=== PATIENT | female | born 1990 | race African-American/Black ===

== ENCOUNTER 2018-02-14 17:21 | Emergency (ER) | payer OTHER ==
[~2018-02-14] VITALS: Ht 165.1 cm; Wt 61.2 kg
[~2018-02-14 17:21] MED LIST: NITR100C62 PO
[2018-02-14 17:39] LABS: BILIRUBIN,URINE SMALL (NEG); CLARITY,URINE CLEAR; COLOR,URINE AMBER; NITRITE,URINE NEGATIVE (NEG); PH,URINE 6.5; PROTEIN,URINE NEGATIVE (NEG-TRACE)
[2018-02-14 17:50] LABS: BACTERIA,URINE FEW /HPF (0-FEW); RBC,URINE 0 /HPF (0-2); SQUAMOUS EPITHELIAL CELL,UR MOD /LPF; YEAST,URINE PRESENT /HPF
[2018-02-14] MEDS ORDERED: IV NORMAL SALINE 1000ML BAG 1,000 ML IV ONE (18:00)
[2018-02-14 18:22] LABS: BASO % 1 % (0-3); EOS # 0.1 x10^3/uL (0.0-0.7); EOS % 1 % (0-3); HEMATOCRIT 42.8 % (36.0-47.0); HEMOGLOBIN 14.5 g/dL (12.0-15.5); LYMPH # 2.7 x10^3/uL (1.0-4.8); LYMPH % 38 % (24-48); MEAN CORPUSCULAR HEMOGLOBIN 33 pg (25-35); MEAN CORPUSCULAR HGB CONC 34 g/dL (31-37); MEAN CORPUSCULAR VOLUME 96 fL (79-100); MONO # 0.4 x10^3/uL (0.0-1.1); MONO % 5 % (0-9); NEUT % 56 % (31-73); PLATELET COUNT 173 x10^3/uL (140-400); RED BLOOD COUNT 4.44 x10^6/uL (3.50-5.40); RED CELL DISTRIBUTION WIDTH 12.9 % (11.5-14.5); WHITE BLOOD COUNT 7.2 x10^3/uL (4.0-11.0)
[2018-02-14 18:25] LABS: CALCIUM 9.8 mg/dL (8.5-10.1); CREATININE 0.9 mg/dL (0.6-1.0); GFR 92.3; POTASSIUM 3.5 mmol/L (3.5-5.1)
--- NOTE | 2018-02-14 18:26 | PHYS DOC ---
Past Medical History Past Medical History: No Pertinent History Past Surgical History: No Surgical History Alcohol Use: None Drug Use: None Adult General Chief Complaint Chief Complaint: ABDOMINAL PAIN [facility] HPI Patient is a 27 year old female who presents with intermittent epigastric sharp pain. With last month. Patient states she has not her primary care assignment seen for. She states that nothing makes it better and nothing makes it worse. She is only been taking Tylenol every now and then for the pain. Patient states eating does not effect it or drinking. Patient also states that she does have some white vaginal discharge that doesn't have an odor color she has no vaginal itching. Patient has had a tubal ligation and last was her period was January 27. She denies diarrhea, fever, any abdominal pain at this time. Review of Systems Review of Systems Constitutional: Denies fever or chills [] Eyes: Denies change in visual acuity, redness, or eye pain [] HENT: Denies nasal congestion or sore throat [] Respiratory: Denies cough or shortness of breath [] Cardiovascular: No additional information not addressed in HPI [] GI: Intermittent epigastric abdominal pain, denies nausea, vomiting, bloody stools or diarrhea [] : White Vaginal discharge, Denies dysuria or hematuria [] Musculoskeletal: Denies back pain or joint pain [] Integument: Denies rash or skin lesions [] Neurologic: Denies headache, focal weakness or sensory changes [] All other systems were reviewed and found to be within normal limits, except as documented in this note. Current Medications Current Medications Current Medications Medications (Trade) Dose Ordered Sig/Katja Start Time Stop Time Status Last Admin Dose Admin Fluconazole (Diflucan) 150 mg 1X ONCE 02/14/18 19:15 02/14/18 19:16 DC Iohexol (Omnipaque 300 Mg/ml) 75 ml 1X ONCE 02/14/18 18:45 02/14/18 18:46 DC 02/14/18 18:53 75 ML Sodium Chloride 1,000 ml @ 1,000 mls/hr 1X ONCE 02/14/18 18:00 02/14/18 18:59 DC 02/14/18 18:00 1,000 MLS/HR Allergies Allergies Allergies Coded Allergies Type Severity Reaction Last Updated Verified No Known Drug Allergies 07/23/15 No Physical Exam Physical Exam Constitutional: Well developed, well nourished, no acute distress, non-toxic appearance. [] HENT: Normocephalic, atraumatic, bilateral external ears normal, oropharynx moist, no oral exudates, nose normal. [] Eyes: PERRLA, EOMI, conjunctiva normal, no discharge. [] Neck: Normal range of motion, no tenderness, supple, no stridor. [] Cardiovascular:Heart rate regular rhythm, no murmur [] Lungs & Thorax: Bilateral breath sounds clear to auscultation [] Abdomen: White vaginal discharge. Bowel sounds normal, soft, no tenderness, no masses, no pulsatile masses. [] Skin: Warm, dry, no erythema, no rash. [] Back: No tenderness, no CVA tenderness. [] Extremities: No tenderness, no cyanosis, no clubbing, ROM intact, no edema. [] Neurologic: Alert and oriented X 3, normal motor function, normal sensory function, no focal deficits noted. [] Psychologic: Affect normal, judgement normal, mood normal. [] Current Patient Data Vital Signs Vital Signs Date Time Temp Pulse Resp B/P (MAP) Pulse Ox O2 Delivery O2 Flow Rate FiO2 02/14/18 17:41 97.8 76 16 128/79 (95) 100 Room Air 97.8 Lab Values Laboratory Tests Test 02/14/18 17:21 02/14/18 17:32 02/14/18 18:04 Urine Collection Type Unknown Urine Color Sabra Urine Clarity Clear Urine pH 6.5 Urine Specific [place] >=1.030 Urine Protein Negative mg/dL (NEG-TRACE) Urine Glucose (UA) Negative mg/dL (NEG) Urine Ketones (Stick) Negative mg/dL (NEG) Urine Blood Negative (NEG) Urine Nitrite Negative (NEG) Urine Bilirubin Small (NEG) Urine Urobilinogen Dipstick 1.0 mg/dL (0.2 mg/dL) Urine Leukocyte Esterase Small (NEG) Urine RBC 0 /HPF (0-2) Urine WBC 11-20 /HPF (0-4) Urine Squamous Epithelial Cells Mod /LPF Urine Bacteria Few /HPF (0-FEW) Urine Mucus Marked /LPF Urine Yeast Present /HPF POC Urine HCG, Qualitative Hcg negative (Negative) White Blood Count 7.2 x10^3/uL (4.0-11.0) Red Blood Count 4.44 x10^6/uL (3.50-5.40) Hemoglobin 14.5 g/dL (12.0-15.5) Hematocrit 42.8 % (36.0-47.0) Mean Corpuscular Volume 96 fL (79-100) Mean Corpuscular Hemoglobin 33 pg (25-35) Mean Corpuscular Hemoglobin Concent 34 g/dL (31-37) Red Cell Distribution Width 12.9 % (11.5-14.5) Platelet Count 173 x10^3/uL (140-400) Neutrophils (%) (Auto) 56 % (31-73) Lymphocytes (%) (Auto) 38 % (24-48) Monocytes (%) (Auto) 5 % (0-9) Eosinophils (%) (Auto) 1 % (0-3) Basophils (%) (Auto) 1 % (0-3) Neutrophils # (Auto) 4.0 x10^3uL (1.8-7.7) Lymphocytes # (Auto) 2.7 x10^3/uL (1.0-4.8) Monocytes # (Auto) 0.4 x10^3/uL (0.0-1.1) Eosinophils # (Auto) 0.1 x10^3/uL (0.0-0.7) Basophils # (Auto) 0.0 x10^3/uL (0.0-0.2) Sodium Level 141 mmol/L (136-145) Potassium Level 3.5 mmol/L (3.5-5.1) Chloride Level 101 mmol/L (98-107) Carbon Dioxide Level 29 mmol/L (21-32) Anion Gap 11 (6-14) Blood Urea Nitrogen 13 mg/dL (7-20) Creatinine 0.9 mg/dL (0.6-1.0) Estimated GFR (Cockcroft-Gault) 92.3 BUN/Creatinine Ratio 14 (6-20) Glucose Level 75 mg/dL (70-99) Calcium Level 9.8 mg/dL (8.5-10.1) Total Bilirubin 0.5 mg/dL (0.2-1.0) Aspartate Amino Transferase (AST) 12 U/L (15-37) L Alanine Aminotransferase (ALT) 16 U/L (14-59) Alkaline Phosphatase 93 U/L (46-116) Total Protein 8.7 g/dL (6.4-8.2) H Albumin 4.7 g/dL (3.4-5.0) Albumin/Globulin Ratio 1.2 (1.0-1.7) Lipase 152 U/L (73-393) Laboratory Tests 02/14/18 18:04 Laboratory Tests 02/14/18 18:04 Microbiology 02/14/18 Wet Prep - Final, Complete EKG EKG [] Radiology/Procedures Radiology/Procedures CT ABD PELV Impressions: [facility] [address] [place] [address] IMAGING REPORT Signed PATIENT: EVI BERTRAND ACCOUNT: [id number] : 1990 LOCATION: ER AGE: 27 SEX: F EXAM STATUS: REG ER ORD. PHYSICIAN: FESTUS LIMA APRN REASON: CHRONIC ABDOMINAL PAIN PROCEDURE: CT ABD PELV W/ IV CONTRST ONLY CT scan of the abdomen and pelvis with contrast 02/14/2018 CLINICAL HISTORY: Upper abdominal pain for one month. TECHNIQUE: After the intravenous administration of 75 cc of Omnipaque 300 only, contiguous, 5 mm axial sections were obtained through abdomen and pelvis. One or more of the following individualized dose reduction techniques were utilized for this study: 1. Automated exposure control. 2. Adjustment of the mA and/or kV according to patient size. 3. Use of iterative reconstruction technique. FINDINGS: Images through the lung bases demonstrate minimal dependent subsegmental atelectasis bilaterally. The liver, spleen, pancreas, adrenal glands and kidneys are within normal limits. The abdominal aorta tapers normally. The liver is contracted. No free fluid or free air is seen within the abdomen. There is no evidence of bowel obstruction. Air and stool is seen throughout the colon. The bowel is difficult to evaluate without oral contrast material. Images through the pelvis demonstrate the urinary bladder distended with urine. No adnexal mass is seen. No free fluid is seen. Very mild S-shaped curvature of the thoracolumbar spine is seen. IMPRESSION: No acute abnormality is seen. Electronically signed by: Liam Ascencio MD (02/14/2018 7:15 PM) [facility] DICTATED and SIGNED BY: LIAM ASCENCIO MD DATE: 02/14/181909 Course & Med Decision Making Course & Med Decision Making Patient is a 27 year old female who presents with intermittent epigastric sharp pain. With last month. Patient states she has not her primary care assignment seen for. She states that nothing makes it better and nothing makes it worse. She is only been taking Tylenol every now and then for the pain. Patient states eating does not effect it or drinking. Patient also states that she does have some white vaginal discharge that doesn't have an odor color she has no vaginal itching. Patient has had a tubal ligation and last was her period was January 27. She denies diarrhea, fever, any abdominal pain at this time. Alert and oriented. Skin is pink warm and dry. Mucous members are moist. Ambulatory with steady gait. Patient has no pain at this time. Abdomen is soft and with no tenderness. Afebrile. Lungs are clear to auscultation all lobes. Heart rate regular without murmur. Patient states she vomited once yesterday but usually doesn't vomit. The vomit had no blood in it. She has not noticed blood in her stools. States she is not worried about sexual transmitted diseases. Wet mount is negative for any acute findings. Blood work is unremarkable. Urine does show some bacteria and yeast. I have order her a dose of Diflucan. CT shows no acute findings. I will give her referral to GI. Patient start taking [id number] Zantac to see if this helps her pain. Patient refuses STD prophylaxis at this time. Pelvic Exam: Aluminizer present Abdomen: Nontender External Genitalia: Normal Skin Speculum: Normal vaginal mucosa, white cervical discharge Bimanual: No adnexal masses or tenderness, No CMT Dragon Disclaimer Dragon Disclaimer This electronic medical record was generated, in whole or in part, using a voice recognition dictation system. Departure Departure Impression: Primary Impression: Abdominal pain Disposition: HOME, SELF-CARE Condition: STABLE Referrals: NO PCP (PCP) NICK WALLIS MD Patient Instructions: Abdominal Pain (Nonspecific) Additional Instructions: Follow-up with GI. Take medication as prescribed. Scripts Ranitidine Hcl (ZANTAC) 150 Mg Tablet 1 TAB PO BID, #60 TAB 2 Refills Prov: JAXON LIMANNA Alfonso CATHEAD OPERATOR 02/14/18 Problem Qualifiers Primary Impression: Abdominal pain Abdominal location: epigastric Qualified Codes: R10.13 - Epigastric pain FESTUS LIMA APRN Feb 14, 2018 18:26
[2018-02-14 18:31] LABS: ALBUMIN 4.7 g/dL (3.4-5.0); ALBUMIN/GLOBULIN RATIO 1.2 (1.0-1.7); TOTAL BILIRUBIN 0.5 mg/dL (0.2-1.0); TOTAL PROTEIN 8.7 g/dL (6.4-8.2)
[2018-02-14] MEDS ORDERED: IOHEXOL 300 MG/ML 100ML VIAL. IV ONE (18:45)
[2018-02-14] MEDS ORDERED: FLUCONAZOLE 100 MG TABLET. PO ONE (19:15)
--- NOTE | 2018-02-14 19:19 | RAD ---
CT scan of the abdomen and pelvis with contrast 02/14/2018 CLINICAL HISTORY: Upper abdominal pain for one month. TECHNIQUE: After the intravenous administration of 75 cc of Omnipaque 300 only, contiguous, 5 mm axial sections were obtained through abdomen and pelvis. One or more of the following individualized dose reduction techniques were utilized for this study: 1. Automated exposure control. 2. Adjustment of the mA and/or kV according to patient size. 3. Use of iterative reconstruction technique. FINDINGS: Images through the lung bases demonstrate minimal dependent subsegmental atelectasis bilaterally. The liver, spleen, pancreas, adrenal glands and kidneys are within normal limits. The abdominal aorta tapers normally. The liver is contracted. No free fluid or free air is seen within the abdomen. There is no evidence of bowel obstruction. Air and stool is seen throughout the colon. The bowel is difficult to evaluate without oral contrast material. Images through the pelvis demonstrate the urinary bladder distended with urine. No adnexal mass is seen. No free fluid is seen. Very mild S-shaped curvature of the thoracolumbar spine is seen. IMPRESSION: No acute abnormality is seen. Electronically signed by: Liam Ascenico MD (02/14/2018 7:15 PM) [facility]
[2018-02-14] MEDS ORDERED: RANI150T21 PO (19:40)
[2018-02-14 19:45] VITALS: BP 105/68
[2018-02-17 19:15] LABS: GC PROBE Negative (Negative)
== END 2018-02-14 20:02 | disposition home or self-care (01) ==
LOC: ER 17:21
DX: R10.13 Epigastric pain (principal); N89.8 Other specified noninflammatory disorders of vagina; Z98.51 Tubal ligation status
CPT/HCPCS: 36415; 74177; 80053; 81001; 81025; 83690; 85025; 87086; 87491; 87591; 99284; J7030; Q0111; Q9967

== ENCOUNTER 2018-03-19 13:03 | Emergency (ER) | payer OTHER ==
[~2018-03-19] VITALS: Ht 167.6 cm; Wt 59.0 kg
[~2018-03-19 13:03] MED LIST changes: +RANI150T21 PO
[2018-03-19 14:48] VITALS: BP 134/80
[2018-03-19] MEDS ORDERED: LIDO:MAALOX 1:1 20 ML SINGLE DOSE. SWSW ONE (15:15)
[2018-03-19 15:16] LABS: BILIRUBIN,URINE SMALL (NEG); CLARITY,URINE CLEAR; COLOR,URINE AMBER; NITRITE,URINE NEGATIVE (NEG); PROTEIN,URINE 30 mg/dL (NEG-TRACE)
[2018-03-19 15:26] LABS: SQUAMOUS EPITHELIAL CELL,UR MOD /LPF
[2018-03-19 15:27] LABS: BACTERIA,URINE FEW /HPF (0-FEW); RBC,URINE OCC /HPF (0-2); WBC,URINE 20-40 /HPF (0-4)
[2018-03-19 15:28] LABS: TRICHOMONAS,URINE PRESENT
[2018-03-19] MEDS ORDERED: cefTRIAXone IM 250 MG VIAL IM ONE (16:00)
[2018-03-19] MEDS ORDERED: AZITHROMYCIN 250 MG TABLET. PO ONE (16:00)
[2018-03-19] MEDS ORDERED: FAMO20TA5 PO (16:00)
[2018-03-19] MEDS ORDERED: metroNIDAZOLE 500 MG TABLET PO ONE (16:00)
--- NOTE | 2018-03-19 16:00 | PHYS DOC ---
Past Medical History Past Medical History: No Pertinent History Past Surgical History: No Surgical History Alcohol Use: None Drug Use: None Adult General Chief Complaint Chief Complaint: ABDOMINAL PAIN HPI HPI Patient is a 28 year old female who presents today complaining of mild intermittent sharp epigastric abdominal pain that has been going on for the last 2 months. Patient states her pain is usually worse in the morning when she wakes up. Patient denies anything specific relieving her pain. She states she has been seen in the ED before and was told she could have acid reflex. She states she was sent home with medications which she did not take. Patient denies any chance she is . Denies any nausea. Denies any diarrhea. She is also requesting a note for work Review of Systems Review of Systems Constitutional: Denies fever or chills [] Eyes: Denies change in visual acuity, redness, or eye pain [] HENT: Denies nasal congestion or sore throat [] Respiratory: Denies cough or shortness of breath [] Cardiovascular: No additional information not addressed in HPI [] GI: Reports epigastric abdominal pain, denies nausea, vomiting, bloody stools or diarrhea [] : Denies dysuria or hematuria [] Musculoskeletal: Denies back pain or joint pain [] Integument: Denies rash or skin lesions [] Neurologic: Denies headache, focal weakness or sensory changes [] All other systems were reviewed and found to be within normal limits, except as documented in this note. Current Medications Current Medications Current Medications Medications (Trade) Dose Ordered Sig/Katja Start Time Stop Time Status Last Admin Dose Admin Azithromycin (Zithromax) 1,000 mg 1X ONCE 03/19/18 16:00 03/19/18 16:01 Ceftriaxone Sodium (Rocephin Im) 250 mg 1X ONCE 03/19/18 16:00 03/19/18 16:01 Metronidazole (Flagyl) 2,000 mg 1X ONCE 03/19/18 16:00 03/19/18 16:01 Multi-Ingredient Mouthwash/Gargle (Gi Cocktail) 20 ml 1X ONCE 03/19/18 15:15 03/19/18 15:16 DC 03/19/18 15:20 20 ML Allergies Allergies Allergies Coded Allergies Type Severity Reaction Last Updated Verified No Known Drug Allergies 07/23/15 No Physical Exam Physical Exam Constitutional: Well developed, well nourished, no acute distress, non-toxic appearance. [] HENT: Normocephalic, atraumatic, bilateral external ears normal, oropharynx moist, no oral exudates, nose normal. [] Eyes: PERRLA, EOMI, conjunctiva normal, no discharge. [] Neck: Normal range of motion, no tenderness, supple, no stridor. [] Cardiovascular:Heart rate regular rhythm, no murmur [] Lungs & Thorax: Bilateral breath sounds clear to auscultation [] Abdomen: Bowel sounds normal, soft, no tenderness, no masses, no pulsatile masses. [] Skin: Warm, dry, no erythema, no rash. [] Back: No tenderness, no CVA tenderness. [] Extremities: No tenderness, no cyanosis, no clubbing, ROM intact, no edema. [] Neurologic: Alert and oriented X 3, normal motor function, normal sensory function, no focal deficits noted. [] Psychologic: Affect normal, judgement normal, mood normal. [] Current Patient Data Vital Signs Vital Signs Date Time Temp Pulse Resp B/P (MAP) Pulse Ox O2 Delivery O2 Flow Rate FiO2 03/19/18 14:48 97.5 67 20 134/80 (98) 100 Room Air 97.5 Lab Values Laboratory Tests Test 03/19/18 14:44 03/19/18 14:54 Urine Collection Type Unknown Urine Color Sabra Urine Clarity Clear Urine pH 6.0 Urine Specific [place] >=1.030 Urine Protein 30 mg/dL (NEG-TRACE) Urine Glucose (UA) Negative mg/dL (NEG) Urine Ketones (Stick) 15 mg/dL (NEG) Urine Blood Negative (NEG) Urine Nitrite Negative (NEG) Urine Bilirubin Small (NEG) Urine Urobilinogen Dipstick 1.0 mg/dL (0.2 mg/dL) Urine Leukocyte Esterase Small (NEG) Urine RBC Occ /HPF (0-2) Urine WBC 20-40 /HPF (0-4) Urine Squamous Epithelial Cells Mod /LPF Urine Bacteria Few /HPF (0-FEW) Urine Mucus Marked /LPF Urine Trichomonas Present POC Urine HCG, Qualitative Hcg negative (Negative) EKG EKG [] Radiology/Procedures Radiology/Procedures [] Course & Med Decision Making Course & Med Decision Making Pertinent Labs and Imaging studies reviewed. (See chart for details) This is a 28-year-old female patient presenting to the ED today with epigastric abdominal pain for 2 months. Patient has been seen in the ED a month ago and was fully worked up with nothing acute found. She was informed she has acid reflex. She has not been taking anything for it. She is also requesting a note for work. She is in a rash to be discharged. Negative urine hCG. Urine analysis is noted for Trichomonas. Patient was given Flagyl Rocephin and azithromycin. STD education provided. Discharged with prescription for famotidine. Provided GI doctor for follow-up as an outpatient. Dragon Disclaimer Dragon Disclaimer This electronic medical record was generated, in whole or in part, using a voice recognition dictation system. Departure Departure Impression: Primary Impression: Trichomonas vaginitis Additional Impression: Epigastric pain Disposition: 01 HOME, SELF-CARE Condition: STABLE Referrals: NO PCP (PCP) NICK WALLIS MD Follow up in the next 1 week. Patient Instructions: Abdominal Pain, Trichomoniasis-Brief Additional Instructions: You were evaluated in the emergency room for chronic epigastric abdominal pain. We put you on antiacids. Take them as prescribed. Please contact the provided charge entry and follow-up as an outpatient. You are also positive for Trichomonas, this is a sexually transmitted disease. Contact all your sex partners, let them know you were positive for Trichomonas and ask them to seek treatment too. Scripts Famotidine (FAMOTIDINE) 20 Mg Tablet 20 MG PO DAILY, #14 TAB Prov: SPENSER ALCARAZ APRN 03/19/18 Problem Qualifiers SPENSER ALCARAZ APRN Mar 19, 2018 16:00
== END 2018-03-19 16:25 | disposition home or self-care (01) ==
LOC: ER 13:03
DX: A59.01 Trichomonal vulvovaginitis (principal); K21.9 Gastro-esophageal reflux disease without esophagitis
CPT/HCPCS: 81001; 81025; 96372; 99284; J0696; Q0144

== ENCOUNTER 2018-09-09 07:05 | Emergency (ER) | payer MEDICAID, OTHER ==
[~2018-09-09] VITALS: Ht 167.6 cm; Wt 56.7 kg
[~2018-09-09 07:05] MED LIST changes: +FAMO20TA5 PO; +RANI-376 PO; -RANI150T21 PO
[2018-09-09 07:29] LABS: BILIRUBIN,URINE NEGATIVE (NEG); CLARITY,URINE CLEAR; COLOR,URINE YELLOW; NITRITE,URINE NEGATIVE (NEG); PH,URINE 6.5; PROTEIN,URINE NEGATIVE (NEG-TRACE); UROBILINOGEN,URINE 0.2 mg/dL (0.2 mg/dL)
[2018-09-09] MEDS ORDERED: IV NORMAL SALINE 1000ML BAG 1,000 ML IV ONE (07:30)
[2018-09-09] MEDS ORDERED: ONDANSETRON PF 4 MG/2 ML VIAL. IV ONE (07:30)
[2018-09-09 07:35] LABS: BASO % 1 % (0-3); EOS # 0.1 x10^3/uL (0.0-0.7); EOS % 2 % (0-3); HEMATOCRIT 39.8 % (36.0-47.0); HEMOGLOBIN 13.4 g/dL (12.0-15.5); LYMPH # 1.7 x10^3/uL (1.0-4.8); LYMPH % 23 % (24-48); MEAN CORPUSCULAR HEMOGLOBIN 33 pg (25-35); MEAN CORPUSCULAR HGB CONC 34 g/dL (31-37); MEAN CORPUSCULAR VOLUME 97 fL (79-100); MONO # 0.4 x10^3/uL (0.0-1.1); MONO % 5 % (0-9); NEUT % 70 % (31-73); PLATELET COUNT 182 x10^3/uL (140-400); RED BLOOD COUNT 4.09 x10^6/uL (3.50-5.40); RED CELL DISTRIBUTION WIDTH 12.9 % (11.5-14.5); WHITE BLOOD COUNT 7.1 x10^3/uL (4.0-11.0)
[2018-09-09 07:39] LABS: CALCIUM 9.1 mg/dL (8.5-10.1); CREATININE 0.9 mg/dL (0.6-1.0); GFR 91.6
[2018-09-09 07:45] LABS: ALBUMIN 4.3 g/dL (3.4-5.0); ALBUMIN/GLOBULIN RATIO 1.3 (1.0-1.7); TOTAL BILIRUBIN 0.4 mg/dL (0.2-1.0); TOTAL PROTEIN 7.5 g/dL (6.4-8.2)
[2018-09-09 07:57] LABS: BACTERIA,URINE 0 /HPF (0-FEW); RBC,URINE 0 /HPF (0-2); SQUAMOUS EPITHELIAL CELL,UR MANY /LPF; WBC,URINE 0 /HPF (0-4)
--- NOTE | 2018-09-09 08:06 | RAD ---
Indication:Right upper quadrant pain. TECHNIQUE: Grayscale, color Doppler and spectral waveform is of the abdomen obtained. COMPARISON:None FINDINGS: Visualized pancreas within normal limits. IVC is patent. Liver is top normal in size measuring 17 cm with normal echogenicity. No gallstones, pericholecystic fluid or gallbladder wall thickening. Main portal vein is patent with hepatopedal flow. CBD measures 2 mm in diameter and is within normal limits. Right kidney measures 10.3 cm in length without hydronephrosis. IMPRESSION: No cholelithiasis. Electronically signed by: Leighton Pepe DO (09/09/2018 8:03 AM) [facility]
[2018-09-09] MEDS ORDERED: RANI300T3 PO (08:13)
--- NOTE | 2018-09-09 08:13 | PHYS DOC ---
Past Medical History Past Medical History: No Pertinent History Past Surgical History: Alcohol Use: None Drug Use: None Adult General Chief Complaint Chief Complaint: ABDOMINAL PAIN HPI HPI 28-year-old female presents with several day history of waxing and waning epigastric/right upper quadrant pain. She states the pain is unpredictable. She states it doesn't necessarily get better or worse with eating or drinking. She denies any fever chills or sweats. She has not had any melena or hematemesis. She does describe the pain as burning and sharp at times. She states prior to just a few days ago she is not had this pain before. She states she has only had one abdominal surgery which was a in 2017. Patient denies any vaginal bleeding discharge or dyspareunia.] Review of Systems Review of Systems Constitutional: Denies fever or chills [] Eyes: Denies change in visual acuity, redness, or eye pain [] HENT: Denies nasal congestion or sore throat [] Respiratory: Denies cough or shortness of breath [] Cardiovascular: No additional information not addressed in HPI [] GI: Per history of present illness[] : Denies dysuria or hematuria [] Musculoskeletal: Denies back pain or joint pain [] Integument: Denies rash or skin lesions [] Neurologic: Denies headache, focal weakness or sensory changes [] Endocrine: Denies polyuria or polydipsia [] All other systems were reviewed and found to be within normal limits, except as documented in this note. Current Medications Current Medications Current Medications Medications (Trade) Dose Ordered Sig/Katja Start Time Stop Time Status Last Admin Dose Admin Ondansetron HCl (Zofran) 4 mg 1X ONCE 09/09/18 07:30 09/09/18 07:31 DC 09/09/18 07:35 4 MG Sodium Chloride 1,000 ml @ 1,000 mls/hr 1X ONCE 09/09/18 07:30 09/09/18 08:29 09/09/18 07:35 1,000 MLS/HR Allergies Allergies Allergies Coded Allergies Type Severity Reaction Last Updated Verified No Known Drug Allergies 07/23/15 No Physical Exam Physical Exam Constitutional: Well developed, well nourished, no acute distress, non-toxic appearance. [] HENT: Normocephalic, atraumatic, bilateral external ears normal, oropharynx moist, no oral exudates, nose normal. [] Eyes: PERRLA, EOMI, conjunctiva normal, no discharge. [] Neck: Normal range of motion, no tenderness, supple, no stridor. [] Cardiovascular:Heart rate regular rhythm, no murmur [] Lungs & Thorax: Bilateral breath sounds clear to auscultation [] Abdomen: Mild epigastric tenderness to palp negative Anne's[] Skin: Warm, dry, no erythema, no rash. [] Back: No tenderness, no CVA tenderness. [] Extremities: No tenderness, no cyanosis, no clubbing, ROM intact, no edema. [] Neurologic: Alert and oriented X 3, normal motor function, normal sensory function, no focal deficits noted. [] Psychologic: Anxious[] Current Patient Data Vital Signs Vital Signs Date Time Temp Pulse Resp B/P (MAP) Pulse Ox O2 Delivery O2 Flow Rate FiO2 09/09/18 07:07 97.9 78 20 126/75 (92) 95 Room Air 97.9 Lab Values Laboratory Tests Test 09/09/18 07:10 09/09/18 07:15 09/09/18 07:25 Urine Color Yellow Urine Clarity Clear Urine pH 6.5 Urine Specific Reader 1.025 Urine Protein Negative mg/dL (NEG-TRACE) Urine Glucose (UA) Negative mg/dL (NEG) Urine Ketones (Stick) Negative mg/dL (NEG) Urine Blood Negative (NEG) Urine Nitrite Negative (NEG) Urine Bilirubin Negative (NEG) Urine Urobilinogen Dipstick 0.2 mg/dL (0.2 mg/dL) Urine Leukocyte Esterase Negative (NEG) Urine RBC 0 /HPF (0-2) Urine WBC 0 /HPF (0-4) Urine Squamous Epithelial Cells Many /LPF Urine Bacteria 0 /HPF (0-FEW) POC Urine HCG, Qualitative Hcg negative (Negative) White Blood Count 7.1 x10^3/uL (4.0-11.0) Red Blood Count 4.09 x10^6/uL (3.50-5.40) Hemoglobin 13.4 g/dL (12.0-15.5) Hematocrit 39.8 % (36.0-47.0) Mean Corpuscular Volume 97 fL (79-100) Mean Corpuscular Hemoglobin 33 pg (25-35) Mean Corpuscular Hemoglobin Concent 34 g/dL (31-37) Red Cell Distribution Width 12.9 % (11.5-14.5) Platelet Count 182 x10^3/uL (140-400) Neutrophils (%) (Auto) 70 % (31-73) Lymphocytes (%) (Auto) 23 % (24-48) L Monocytes (%) (Auto) 5 % (0-9) Eosinophils (%) (Auto) 2 % (0-3) Basophils (%) (Auto) 1 % (0-3) Neutrophils # (Auto) 5.0 x10^3/uL (1.8-7.7) Lymphocytes # (Auto) 1.7 x10^3/uL (1.0-4.8) Monocytes # (Auto) 0.4 x10^3/uL (0.0-1.1) Eosinophils # (Auto) 0.1 x10^3/uL (0.0-0.7) Basophils # (Auto) 0.0 x10^3/uL (0.0-0.2) Platelet Estimate Pending Sodium Level 137 mmol/L (136-145) Potassium Level 4.0 mmol/L (3.5-5.1) Chloride Level 101 mmol/L (98-107) Carbon Dioxide Level 25 mmol/L (21-32) Anion Gap 11 (6-14) Blood Urea Nitrogen 13 mg/dL (7-20) Creatinine 0.9 mg/dL (0.6-1.0) Estimated GFR (Cockcroft-Gault) 91.6 BUN/Creatinine Ratio 14 (6-20) Glucose Level 96 mg/dL (70-99) Calcium Level 9.1 mg/dL (8.5-10.1) Total Bilirubin 0.4 mg/dL (0.2-1.0) Aspartate Amino Transferase (AST) 12 U/L (15-37) L Alanine Aminotransferase (ALT) 18 U/L (14-59) Alkaline Phosphatase 77 U/L (46-116) Total Protein 7.5 g/dL (6.4-8.2) Albumin 4.3 g/dL (3.4-5.0) Albumin/Globulin Ratio 1.3 (1.0-1.7) Lipase 145 U/L (73-393) Laboratory Tests 09/09/18 07:25 Laboratory Tests 09/09/18 07:25 EKG EKG [] Radiology/Procedures Radiology/Procedures [] Impressions: REASON: ruq pain PROCEDURE: ABDOMEN LTD Indication:Right upper quadrant pain. TECHNIQUE: Grayscale, color Doppler and spectral waveform is of the abdomen obtained. COMPARISON:None FINDINGS: Visualized pancreas within normal limits. IVC is patent. Liver is top normal in size measuring 17 cm with normal echogenicity. No gallstones, pericholecystic fluid or gallbladder wall thickening. Main portal vein is patent with hepatopedal flow. CBD measures 2 mm in diameter and is within normal limits. Right kidney measures 10.3 cm in length without hydronephrosis. IMPRESSION: No cholelithiasis. Course & Med Decision Making Course & Med Decision Making Pertinent Labs and Imaging studies reviewed. (See chart for details) [ED course: Evaluation reveals a 28-year-old female who does not appear particularly ill. She does complain of epigastric pain. Her physical exam was benign. Gallbladder ultrasound did not show any evidence of cholelithiasis. All of her laboratory studies including a urinalysis were negative. I reassured the patient that I did not believe anything serious was going on. I did give her a GI cocktail during her stay in the department which did help alleviate her symptoms. I'll provide her with an H2 celi to take at home.] Dragon Disclaimer Dragon Disclaimer This electronic medical record was generated, in whole or in part, using a voice recognition dictation system. Departure Departure Impression: Primary Impression: Epigastric pain Disposition: HOME, SELF-CARE Condition: STABLE Referrals: NO PCP (PCP) Patient Instructions: Abdominal Pain Additional Instructions: Return to the emergency department with any new or concerning symptoms Scripts Ranitidine Hcl (ZANTAC) 300 Mg Tablet 1 TAB PO QHS for reflux, #90 TAB 3 Refills Prov: ROBERTO TUCKER DO 09/09/18 ROBERTO TUCKER DO Sep 09, 2018 08:13
[2018-09-09 08:15] VITALS: BP 127/77
[2018-09-09] MEDS ORDERED: LIDO:MAALOX 1:1 20 ML SINGLE DOSE. SWSW ONE (08:15)
[2018-09-09 10:19] LABS: PLT ESTIMATE ADEQUATE (ADEQUATE)
== END 2018-09-09 08:22 | disposition home or self-care (01) ==
LOC: ER 07:05
DX: R10.13 Epigastric pain (principal); F41.9 Anxiety disorder, unspecified; R11.2 Nausea with vomiting, unspecified
CPT/HCPCS: 36415; 76705; 80053; 81001; 81025; 83690; 85025; 96361; 96374; 99285; J2405; J7030

== ENCOUNTER 2018-10-21 22:08 | Emergency (ER) | payer MEDICAID ==
[~2018-10-21] VITALS: Ht 167.6 cm; Wt 52.2 kg
[~2018-10-21 22:08] MED LIST changes: +RANI300T3 PO
[2018-10-21] MEDS ORDERED: fentaNYL PF VIAL 100 MCG/2 ML VIAL IV PRN (23:45)
[2018-10-22] MEDS ORDERED: ONDANSETRON PF 4 MG/2 ML VIAL. IV ONE
[2018-10-22] MEDS ORDERED: IV NORMAL SALINE 1000ML BAG 1,000 ML IV SCH
[2018-10-22 00:04] LABS: BASO % 1 % (0-3); EOS # 0.2 x10^3/uL (0.0-0.7); EOS % 2 % (0-3); HEMATOCRIT 38.5 % (36.0-47.0); HEMOGLOBIN 13.1 g/dL (12.0-15.5); LYMPH # 2.3 x10^3/uL (1.0-4.8); LYMPH % 32 % (24-48); MEAN CORPUSCULAR HEMOGLOBIN 34 pg (25-35); MEAN CORPUSCULAR HGB CONC 34 g/dL (31-37); MEAN CORPUSCULAR VOLUME 99 fL (79-100); MONO # 0.4 x10^3/uL (0.0-1.1); MONO % 6 % (0-9); NEUT # 4.4 x10^3/uL (1.8-7.7); NEUT % 60 % (31-73); PLATELET COUNT 167 x10^3/uL (140-400); RED CELL DISTRIBUTION WIDTH 12.8 % (11.5-14.5); WHITE BLOOD COUNT 7.3 x10^3/uL (4.0-11.0)
[2018-10-22 00:13] LABS: CALCIUM 8.7 mg/dL (8.5-10.1); CREATININE 0.7 mg/dL (0.6-1.0); GFR 122.4; POTASSIUM 3.7 mmol/L (3.5-5.1)
[2018-10-22 00:14] LABS: BILIRUBIN,URINE NEGATIVE (NEG); CLARITY,URINE CLEAR; COLOR,URINE YELLOW; NITRITE,URINE NEGATIVE (NEG); PROTEIN,URINE NEGATIVE (NEG-TRACE)
[2018-10-22 00:15] VITALS: BP 123/81
[2018-10-22 00:19] LABS: BACTERIA,URINE FEW /HPF (0-FEW); RBC,URINE 0 /HPF (0-2); SQUAMOUS EPITHELIAL CELL,UR MOD /LPF
[2018-10-22 00:22] LABS: ALBUMIN 4.1 g/dL (3.4-5.0); ALBUMIN/GLOBULIN RATIO 1.2 (1.0-1.7); TOTAL BILIRUBIN 0.4 mg/dL (0.2-1.0); TOTAL PROTEIN 7.4 g/dL (6.4-8.2)
[2018-10-22] MEDS ORDERED: IOHEXOL 300 MG/ML 100ML VIAL. IV ONE (01:00)
[2018-10-22] MEDS ORDERED: CONTRAST GIVEN. MC PRN (01:15)
--- NOTE | 2018-10-22 01:57 | PHYS DOC ---
Past Medical History Past Medical History: No Pertinent History Past Surgical History: Additional Information: 2 PPD Alcohol Use: None Drug Use: None Adult General Chief Complaint Chief Complaint: ABDOMINAL PAIN HPI HPI Patient is a 28-year-old female who presents with complaint of epigastric pain that has been intermittent over the last month. She states that pain is been present for the last couple of days and rates the pain at a 10 out of 10. She denies any radiation of the pain. She does admit to nausea and vomiting but denies any diarrhea. She denies any fever. Patient states that nothing improves the pain.[] Review of Systems Review of Systems Constitutional: Denies fever or chills [] Respiratory: Denies cough or shortness of breath [] Cardiovascular: No additional information not addressed in HPI [] GI: Complains of abdominal pain with nausea and vomiting. Denies diarrhea [] : Denies dysuria or hematuria [] Musculoskeletal: Denies back pain or joint pain [] All other systems were reviewed and found to be within normal limits, except as documented in this note. Current Medications Current Medications Current Medications Medications (Trade) Dose Ordered Sig/Katja Start Time Stop Time Status Last Admin Dose Admin Fentanyl Citrate (Fentanyl 2ml Vial) 25 mcg PRN Q15MIN PRN 10/21/18 23:45 10/22/18 02:53 DC 10/22/18 00:12 25 MCG Info (CONTRAST GIVEN -- Rx MONITORING) 1 each PRN DAILY PRN 10/22/18 01:15 10/22/18 02:53 DC Iohexol (Omnipaque 300 Mg/ml) 75 ml 1X ONCE 10/22/18 01:00 10/22/18 01:01 DC 10/22/18 00:59 75 ML Ondansetron HCl (Zofran) 4 mg 1X ONCE 10/22/18 00:00 10/22/18 00:01 DC 10/22/18 00:12 4 MG Sodium Chloride 1,000 ml @ 1,000 mls/hr Q1H 10/22/18 00:00 10/22/18 00:59 DC 10/22/18 00:14 1,000 MLS/HR Allergies Allergies Allergies Coded Allergies Type Severity Reaction Last Updated Verified No Known Drug Allergies 07/23/15 No Physical Exam Physical Exam Constitutional: Well developed, well nourished, no acute distress, non-toxic appearance. [] HENT: Normocephalic, atraumatic, bilateral external ears normal, oropharynx moist, no oral exudates, nose normal. [] Eyes: PERRLA, EOMI, conjunctiva normal, no discharge. [] Neck: Normal range of motion, no tenderness, supple, no stridor. [] Cardiovascular:Heart rate regular rhythm, no murmur [] Lungs & Thorax: Bilateral breath sounds clear to auscultation [] Abdomen: Bowel sounds normal, soft, with reported epigastric tenderness. [] Skin: Warm, dry, no erythema, no rash. [] Extremities: No tenderness, no cyanosis, no clubbing, ROM intact. [] Neurologic: Alert and oriented X 3, no focal deficits noted. [] Current Patient Data Vital Signs Vital Signs Date Time Temp Pulse Resp B/P (MAP) Pulse Ox O2 Delivery O2 Flow Rate FiO2 10/22/18 00:15 71 123/81 (95) 100 Room Air 10/22/18 00:12 20 10/21/18 23:11 98.1 98.1 Lab Values Laboratory Tests Test 10/21/18 23:10 10/21/18 23:16 10/21/18 23:30 Urine Collection Type Unknown Urine Color Yellow Urine Clarity Clear Urine pH 6.0 Urine Specific Echo 1.025 Urine Protein Negative mg/dL (NEG-TRACE) Urine Glucose (UA) Negative mg/dL (NEG) Urine Ketones (Stick) Negative mg/dL (NEG) Urine Blood Negative (NEG) Urine Nitrite Negative (NEG) Urine Bilirubin Negative (NEG) Urine Urobilinogen Dipstick 1.0 mg/dL (0.2 mg/dL) Urine Leukocyte Esterase Negative (NEG) Urine RBC 0 /HPF (0-2) Urine WBC 1-4 /HPF (0-4) Urine Squamous Epithelial Cells Mod /LPF Urine Bacteria Few /HPF (0-FEW) Urine Mucus Marked /LPF POC Urine HCG, Qualitative Hcg negative (Negative) White Blood Count 7.3 x10^3/uL (4.0-11.0) Red Blood Count 3.90 x10^6/uL (3.50-5.40) Hemoglobin 13.1 g/dL (12.0-15.5) Hematocrit 38.5 % (36.0-47.0) Mean Corpuscular Volume 99 fL (79-100) Mean Corpuscular Hemoglobin 34 pg (25-35) Mean Corpuscular Hemoglobin Concent 34 g/dL (31-37) Red Cell Distribution Width 12.8 % (11.5-14.5) Platelet Count 167 x10^3/uL (140-400) Neutrophils (%) (Auto) 60 % (31-73) Lymphocytes (%) (Auto) 32 % (24-48) Monocytes (%) (Auto) 6 % (0-9) Eosinophils (%) (Auto) 2 % (0-3) Basophils (%) (Auto) 1 % (0-3) Neutrophils # (Auto) 4.4 x10^3/uL (1.8-7.7) Lymphocytes # (Auto) 2.3 x10^3/uL (1.0-4.8) Monocytes # (Auto) 0.4 x10^3/uL (0.0-1.1) Eosinophils # (Auto) 0.2 x10^3/uL (0.0-0.7) Basophils # (Auto) 0.0 x10^3/uL (0.0-0.2) Sodium Level 142 mmol/L (136-145) Potassium Level 3.7 mmol/L (3.5-5.1) Chloride Level 106 mmol/L (98-107) Carbon Dioxide Level 28 mmol/L (21-32) Anion Gap 8 (6-14) Blood Urea Nitrogen 10 mg/dL (7-20) Creatinine 0.7 mg/dL (0.6-1.0) Estimated GFR (Cockcroft-Gault) 122.4 BUN/Creatinine Ratio 14 (6-20) Glucose Level 81 mg/dL (70-99) Calcium Level 8.7 mg/dL (8.5-10.1) Total Bilirubin 0.4 mg/dL (0.2-1.0) Aspartate Amino Transferase (AST) 9 U/L (15-37) L Alanine Aminotransferase (ALT) 17 U/L (14-59) Alkaline Phosphatase 78 U/L (46-116) Total Protein 7.4 g/dL (6.4-8.2) Albumin 4.1 g/dL (3.4-5.0) Albumin/Globulin Ratio 1.2 (1.0-1.7) Lipase 81 U/L (73-393) Laboratory Tests 10/21/18 23:30 Laboratory Tests 10/21/18 23:30 EKG EKG [] Radiology/Procedures Radiology/Procedures [] Impressions: CT abdomen pelvis with contrast: Reason for examination: Abdominal pain. Comparison is made to previous study dated 02/14/2018. Helical images were obtained through the abdomen and pelvis with intravenous administration of 75 cc Omnipaque 300. Reconstruction was performed in sagittal and coronal planes. Evaluation is limited by lack of intestinal contrast and limited intra-abdominal fat. Exposure: One or more of the following individualized dose reduction techniques were utilized for this examination: 1. Automated exposure control 2. Adjustment of the mA and/or kV according to patient size 3. Use of iterative reconstruction technique. The lung bases are clear. The heart size is normal with no pericardial effusion. The liver appears be mildly enlarged at 19 cm. No focal abnormality seen at the liver, gallbladder, spleen, adrenal glands or pancreas. The abdominal aorta and inferior vena cava show no acute abnormalities. The kidneys show no renal masses, renal calculi, hydronephrosis or evidence of obstructive uropathy. There is very little intra-abdominal fat and there is crowding of the intestinal structures. There is a large amount of intestinal air and fluid and no apparent obstruction is seen. The appendix is not definitely identified. No abnormality seen at the bladder or uterus. There does appear to be a 3 cm cystic-appearing lesion in the left adnexa which may ovarian cyst. No definite free fluid or free air is identified. No acute bony abnormalities are seen. IMPRESSION: Large amount of intestinal air but especially in the colon but no abnormal dilatation or evidence of obstruction. 3 cm cystic-appearing lesion in the left adnexa which may represent an ovarian cyst. Appendix is not identified due to lack of intra-abdominal fat and crowding of the abdominal structures. Electronically signed by: Marisela Suárez MD (10/22/2018 2:16 AM) [facility] DICTATED and SIGNED BY: MARISELA SUÁREZ MD DATE: 10/22/18 0216 Course & Med Decision Making Course & Med Decision Making Pertinent Labs and Imaging studies reviewed. (See chart for details) [] Dragon Disclaimer Dragon Disclaimer This electronic medical record was generated, in whole or in part, using a voice recognition dictation system. Departure Departure Impression: Primary Impression: Abdominal pain Disposition: 01 HOME, SELF-CARE Condition: STABLE Referrals: NO PCP (PCP) Patient Instructions: Abdominal Migraine Scripts Ondansetron Hcl (ZOFRAN) 4 Mg Tablet 4 MG PO PRN TID PRN for NAUSEA, #10 nausea/vomiting Prov: STEFANI FLANAGAN Jr. DO 10/22/18 Tramadol Hcl (TRAMADOL HCL) 50 Mg Tablet 50 MG PO Q6HRS PRN for PAIN, #10 TAB Prov: STEFANI FLANAGAN Jr. DO 10/22/18 Problem Qualifiers Primary Impression: Abdominal pain Abdominal location: epigastric Qualified Codes: R10.13 - Epigastric pain STEFANI FLANAGAN Jr. DO Oct 22, 2018 01:57
--- NOTE | 2018-10-22 02:19 | RAD ---
CT abdomen pelvis with contrast: Reason for examination: Abdominal pain. Comparison is made to previous study dated 02/14/2018. Helical images were obtained through the abdomen and pelvis with intravenous administration of 75 cc Omnipaque 300. Reconstruction was performed in sagittal and coronal planes. Evaluation is limited by lack of intestinal contrast and limited intra-abdominal fat. Exposure: One or more of the following individualized dose reduction techniques were utilized for this examination: 1. Automated exposure control 2. Adjustment of the mA and/or kV according to patient size 3. Use of iterative reconstruction technique. The lung bases are clear. The heart size is normal with no pericardial effusion. The liver appears be mildly enlarged at 19 cm. No focal abnormality seen at the liver, gallbladder, spleen, adrenal glands or pancreas. The abdominal aorta and inferior vena cava show no acute abnormalities. The kidneys show no renal masses, renal calculi, hydronephrosis or evidence of obstructive uropathy. There is very little intra-abdominal fat and there is crowding of the intestinal structures. There is a large amount of intestinal air and fluid and no apparent obstruction is seen. The appendix is not definitely identified. No abnormality seen at the bladder or uterus. There does appear to be a 3 cm cystic-appearing lesion in the left adnexa which may ovarian cyst. No definite free fluid or free air is identified. No acute bony abnormalities are seen. IMPRESSION: Large amount of intestinal air but especially in the colon but no abnormal dilatation or evidence of obstruction. 3 cm cystic-appearing lesion in the left adnexa which may represent an ovarian cyst. Appendix is not identified due to lack of intra-abdominal fat and crowding of the abdominal structures. Electronically signed by: Marisela Gaxiola MD (10/22/2018 2:16 AM) [facility]
[2018-10-22] MEDS ORDERED: TRAM50TA PO (02:30)
[2018-10-22] MEDS ORDERED: ONDA4TAB7 PO (02:30)
== END 2018-10-22 02:53 | disposition home or self-care (01) ==
LOC: ER 22:08
DX: R10.13 Epigastric pain (principal); R11.2 Nausea with vomiting, unspecified; F17.200 Nicotine dependence, unspecified, uncomplicated; Z98.890 Other specified postprocedural states
CPT/HCPCS: 36415; 74177; 80053; 81001; 81025; 83690; 85025; 96361; 96374; 96375; 99285; J2405; J3010; J7030; Q9967

== ENCOUNTER 2018-10-24 14:06 | Emergency (ER) | payer MEDICAID ==
[~2018-10-24] VITALS: Ht 167.6 cm; Wt 52.2 kg
[~2018-10-24 14:06] MED LIST changes: +ONDA4TAB7 PO; +TRAM50TA PO
--- NOTE | 2018-10-24 15:16 | PHYS DOC ---
Past Medical History Past Medical History: No Pertinent History Past Surgical History: Alcohol Use: None Drug Use: None Adult General Chief Complaint Chief Complaint: ABDOMINAL PAIN HPI HPI Patient is a 28 year old female who presents with [sharp epigastric pain. Patient reports she had been seen here 2 days ago, had labs and imaging, sent home wt rx for zofran and tramadol. Reports she has been taking it, but it is not helping her pain. States she has felt like vomiting several times today. States she has not been able to follow up with GI as it has been a holiday we ekend. ] Review of Systems Review of Systems Constitutional: Denies fever or chills [] Respiratory: Denies cough or shortness of breath [] Cardiovascular: No additional information not addressed in HPI [] GI: Reports sharp epigastric pain. States she has been spitting up some mucus, which she was referring to as emesis and denies any food particles coming up on the mucus. Denies any nausea at this time, bloody stools or diarrhea [] : Denies dysuria or hematuria [] Musculoskeletal: Denies back pain or joint pain [] Integument: Denies rash or skin lesions [] Neurologic: Denies headache, focal weakness or sensory changes [] Endocrine: Denies polyuria or polydipsia [] All other systems were reviewed and found to be within normal limits, except as documented in this note. Current Medications Current Medications Current Medications Medications (Trade) Dose Ordered Sig/Katja Start Time Stop Time Status Last Admin Dose Admin Sucralfate (Carafate) 1 gm 1X ONCE 10/24/18 15:30 10/24/18 15:31 DC 10/24/18 15:39 1 GM Allergies Allergies Allergies Coded Allergies Type Severity Reaction Last Updated Verified No Known Drug Allergies 07/23/15 No Physical Exam Physical Exam Constitutional: Well developed, well nourished, no acute distress, non-toxic appearance. [] HENT: Normocephalic, atraumatic, bilateral external ears normal, oropharynx moist, no oral exudates, nose normal. [] Eyes: PERRLA, EOMI, conjunctiva normal, no discharge. [] Neck: Normal range of motion, no tenderness, supple, no stridor. [] Cardiovascular:Heart rate regular rhythm, no murmur [] Lungs & Thorax: Bilateral breath faint wheezing noted[] Abdomen: Bowel sounds normal, soft, no tenderness, no masses, no pulsatile masses. [] Skin: Warm, dry, no erythema, no rash. [] Back: No tenderness, no CVA tenderness. [] Extremities: No tenderness, no cyanosis, no clubbing, ROM intact, no edema. [] Neurologic: Alert and oriented X 3, normal motor function, normal sensory function, no focal deficits noted. [] Psychologic: Affect normal, judgement normal, mood normal. [] Current Patient Data Vital Signs Vital Signs Date Time Temp Pulse Resp B/P (MAP) Pulse Ox O2 Delivery O2 Flow Rate FiO2 10/24/18 14:24 98.1 69 16 148/88 (108) 100 Room Air 98.1 Lab Values Laboratory Tests Test 10/24/18 14:16 POC Urine HCG, Qualitative Hcg negative (Negative) EKG EKG [] Radiology/Procedures Radiology/Procedures [] Course & Med Decision Making Course & Med Decision Making Pertinent Labs and Imaging studies reviewed. (See chart for details) [Reviewed lab and imaging results from two days prior, patient reports she does really want any additional testing changes once a medication that will work for her discomfort. She wants to follow-up with a information broker. she wants to just does not have the chance because of the holiday.] Carlaon Disclaimer Trudy Disclaimer This electronic medical record was generated, in whole or in part, using a voice recognition dictation system. Departure Departure Impression: Primary Impression: Epigastric pain Disposition: HOME, SELF-CARE Condition: STABLE Referrals: NO PCP (PCP) Patient Instructions: Gastritis, Adult Additional Instructions: Has been discussed, and she'll follow up with information broker. Take medications as prescribed. Try to watch your diet. As we discussed, try to stop smoking to help improve your lungs.. Scripts Omeprazole (OMEPRAZOLE) 20 Mg Tablet. 20 MG PO DAILY, #20 TAB Prov: ROBINSON PATEL APRN 10/24/18 Sucralfate (CARAFATE) 1 Gm Tablet 1 GM PO BIDBFRMEAL PRN PRN for PAIN, #20 TAB Prov: ROBINSON PATEL APRN 10/24/18 ROBINSON PATEL APRN Oct 24, 2018 15:16
[2018-10-24] MEDS ORDERED: SUCRALFATE 1 GM TABLET. PO ONE (15:30)
[2018-10-24 15:48] VITALS: BP 113/68
[2018-10-24] MEDS ORDERED: SUCR1TAB35 PO (15:52)
[2018-10-24] MEDS ORDERED: OMEP20TA8 PO (15:52)
== END 2018-10-24 16:09 | disposition home or self-care (01) ==
LOC: ER 14:06
DX: R10.13 Epigastric pain (principal)
CPT/HCPCS: 81025; 99283

== ENCOUNTER 2019-02-14 09:32 | Emergency (ER) | payer MEDICAID ==
[~2019-02-14] VITALS: Ht 167.6 cm; Wt 54.4 kg
[~2019-02-14 09:32] MED LIST changes: +OMEP20TA8 PO; +SUCR1TAB35 PO
[2019-02-14 09:47] VITALS: BP 105/69
--- NOTE | 2019-02-14 10:11 | PHYS DOC ---
Past Medical History Past Medical History: GERD, STD Past Surgical History: Alcohol Use: None Drug Use: None Adult General Chief Complaint Chief Complaint: ABDOMINAL PAIN HPI HPI Patient is a 28 year old female with history of acid reflux who presents to the ED today complaining of epigastric abdominal pain that has been going on for months, patient states symptoms began around 2018. Patient states she's been seen in the ED multiple times and has had many tests including a CAT scan of the abdomen and pelvic done a couple months ago which was negative. She states she is supposed to follow-up with a GI doctor but has not had a chance to see one. Patient denies any pain right now. She states whenever the pain occurs it feels like a note in the epigastric region. Review of Systems Review of Systems Constitutional: Denies fever or chills [] Eyes: Denies change in visual acuity, redness, or eye pain [] HENT: Denies nasal congestion or sore throat [] Respiratory: Denies cough or shortness of breath [] Cardiovascular: No additional information not addressed in HPI [] GI: Reports epigastric pain, denies nausea, vomiting, bloody stools or diarrhea [] : Denies dysuria or hematuria [] Musculoskeletal: Denies back pain or joint pain [] Integument: Denies rash or skin lesions [] Neurologic: Denies headache, focal weakness or sensory changes [] All other systems were reviewed and found to be within normal limits, except as documented in this note. Current Medications Current Medications Current Medications Medications (Trade) Dose Ordered Sig/Katja Start Time Stop Time Status Last Admin Dose Admin Multi-Ingredient Mouthwash/Gargle (Gi Cocktail) 20 ml 1X ONCE 02/14/19 10:15 02/14/19 10:16 DC 02/14/19 10:14 20 ML Allergies Allergies Allergies Coded Allergies Type Severity Reaction Last Updated Verified No Known Drug Allergies 07/23/15 No Physical Exam Physical Exam Constitutional: Well developed, well nourished, no acute distress, non-toxic appearance. [] HENT: Normocephalic, atraumatic, bilateral external ears normal, oropharynx moist, no oral exudates, nose normal. [] Eyes: PERRLA, EOMI, conjunctiva normal, no discharge. [] Neck: Normal range of motion, no tenderness, supple, no stridor. [] Cardiovascular:Heart rate regular rhythm, no murmur [] Lungs & Thorax: Bilateral breath sounds clear to auscultation [] Abdomen: Bowel sounds normal, soft, no tenderness, no masses, no pulsatile masses. [] Skin: Warm, dry, no erythema, no rash. [] Back: No tenderness, no CVA tenderness. [] Extremities: No tenderness, no cyanosis, no clubbing, ROM intact, no edema. [] Neurologic: Alert and oriented X 3, normal motor function, normal sensory function, no focal deficits noted. [] Psychologic: Affect normal, judgement normal, mood normal. [] Current Patient Data Vital Signs Vital Signs Date Time Temp Pulse Resp B/P (MAP) Pulse Ox O2 Delivery O2 Flow Rate FiO2 02/14/19 09:47 98.8 93 16 105/69 (81) 100 Room Air 98.8 Lab Values Laboratory Tests Test 02/14/19 09:52 POC Urine HCG, Qualitative Hcg negative (Negative) EKG EKG [] Radiology/Procedures Radiology/Procedures [] Course & Med Decision Making Course & Med Decision Making Pertinent Labs and Imaging studies reviewed. (See chart for details) This is a 28-year-old female patient presenting to the ED today complaining of epigastric abdominal pain that is chronic in nature, symptoms have been going on since 2018. Patient has been seen in the ED multiple times and has had multiple tests and blood work which were negative. She has been referred to GI. She has not followed up. I gave a referral today, there is nothing unusual about her pain. She was discharged to home. Dragon Disclaimer Dragon Disclaimer This electronic medical record was generated, in whole or in part, using a voice recognition dictation system. Departure Departure Impression: Primary Impression: Chronic epigastric pain Disposition: HOME, SELF-CARE Condition: STABLE Referrals: NO PCP (PCP) NICK WALLIS MD follow up in 1-2 weeks Patient Instructions: Diet for Gastroesophageal Reflux Disease, Adult Additional Instructions: You were evaluated in the emergency room for chronic epigastric abdominal pain. Please follow-up with your GI specialist or the one provided on the discharge paperwork as soon as possible. Take the prescribed medication as ordered. Scripts Omeprazole (OMEPRAZOLE) 20 Mg Tablet.dr 1 TAB PO DAILY, #20 TAB 0 Refills Prov: SPENSER ALCARAZ APRN 02/14/19 SPENSER ALCARAZ APRN Feb 14, 2019 10:11
[2019-02-14] MEDS: LIDO:MAALOX 1:1 20 ML SINGLE DOSE. SWSW ONE (10:14)
[2019-02-14] MEDS ORDERED: OMEP20TA8 PO (10:18)
== END 2019-02-14 10:23 | disposition home or self-care (01) ==
LOC: ER 09:32
DX: G89.29 Other chronic pain (principal); R10.13 Epigastric pain; K21.9 Gastro-esophageal reflux disease without esophagitis
CPT/HCPCS: 81025; 99282

== ENCOUNTER 2019-10-21 06:59 | Emergency (ER) | payer MEDICAID ==
[~2019-10-21] VITALS: Ht 167.6 cm; Wt 70.0 kg
[2019-10-21] MEDS ORDERED: IV NORMAL SALINE 1000ML BAG 1,000 ML IV ONE (07:19)
--- NOTE | 2019-10-21 07:22 | PHYS DOC ---
Past Medical History Past Medical History: GERD, STD Past Surgical History: Smoking Status: Current Every Day Smoker Alcohol Use: None Drug Use: None General Adult EDM: Chief Complaint: ABDOMINAL PAIN HPI: HPI: 29-year-old female presents emergency department today with epigastric abdominal pain for the past 3 days. It is associated with nausea and vomiting. The pain is a sharp shooting that is nonradiating without alleviating or exacerbating factors. It does not have any specific timing. Her vomitus is stomach contents without blood. She denies any blood in her stools. She denies fevers chills or rash. Review of systems negative for chest pain shortness of breath headache nuchal rigidity. All other review of systems negative. ED course: 29-year-old female with nausea vomiting and abdominal pain in the epigastrium. Vital signs show hypertension. Afebrile with a normal pulse. Patient was given IV fluids Pepcid and Zofran and is feeling much better after IV administrations. CT abdomen pelvis is unremarkable. Chemistry panel does show a low potassium. EKG obtained and reviewed by myself shows sinus rhythm with a regular rate. ST segments congruent. Not suggestive of ACS. QTC within normal limits. QRS within normal limits. Patient was given IV potassium here in the emergency room. We will have the patient take oral intake and as long as she is able to take oral intake without vomiting will discharge her home with oral potassium and Zofran along with a few medications for pain and an antacid. Patient has squamous cells with negative nitrites with trace leukoesterase and a few bacteria likely contaminated. Will wait for urine culture. Heart Score: Risk Factors: Risk Factors: DM, Current or recent (<one month) smoker, HTN, HLP, family history of CAD, obesity. Risk Scores: Score 0 - 3: 2.5% MACE over next 6 weeks - Discharge Home Score 4 - 6: 20.3% MACE over next 6 weeks - Admit for Clinical Observation Score 7 - 10: 72.7% MACE over next 6 weeks - Early Invasive Strategies Allergies: Allergies: Allergies Coded Allergies Type Severity Reaction Last Updated Verified No Known Drug Allergies 07/23/15 No Physical Exam: PE: Constitutional: Well developed, well nourished, no acute distress, non-toxic appearance. [] HENT: Normocephalic, atraumatic, bilateral external ears normal, oropharynx moist, no oral exudates, nose normal. [] Eyes: PERRLA, EOMI, conjunctiva normal, no discharge. [] Neck: Normal range of motion, no tenderness, supple, no stridor. [] Cardiovascular:Heart rate regular rhythm, no murmur [] Lungs & Thorax: Bilateral breath sounds clear to auscultation [] Abdomen: Bowel sounds normal, soft, no tenderness, no masses, no pulsatile masses. [] Skin: Warm, dry, no erythema, no rash. [] Back: No tenderness, no CVA tenderness. [] Extremities: No tenderness, no cyanosis, no clubbing, ROM intact, no edema. [] Neurologic: Alert and oriented X 3, normal motor function, normal sensory function, no focal deficits noted. [] Psychologic: Affect normal, judgement normal, mood normal. [] EKG: EKG: [] Radiology/Procedures: Radiology/Procedures: [] Course & Med Decision Making: Course & Med Decision Making Pertinent Labs and Imaging studies reviewed. (See chart for details) [] Dragon Disclaimer: Dragon Disclaimer: This electronic medical record was generated, in whole or in part, using a voice recognition dictation system. Departure Departure Impression: Primary Impression: Abdominal pain Additional Impression: Nausea & vomiting Disposition: 01 HOME, SELF-CARE Condition: STABLE Referrals: NO PCP (PCP) ALVARO SHAH MD tomorrow for reexamination Patient Instructions: Abdominal Pain (Nonspecific), Nausea and Vomiting Additional Instructions: Follow-up with your primary physician tomorrow for repeat abdominal exam. Return to the emergency department if you have any rash fever worsening abdominal pain intractable vomiting or any new or concerning findings. Scripts Potassium Chloride (POTASSIUM CHLORIDE ) 20 Meq Tablet.er 20 MEQ PO DAILY for SUPPLEMENT for 7 Days, #5 TAB.SR Prov: JOSE KEEN MD 10/21/19 Ondansetron Hcl (ZOFRAN) 4 Mg Tablet 1 TAB PO Q8HRS, #6 TAB Prov: JOSE KEEN MD 10/21/19 Justicifation of Admission Dx: Justifications for Admission: Justification of Admission Dx: N/A JOSE KEEN MD Oct 21, 2019 07:22
[2019-10-21] MEDS ORDERED: ONDANSETRON PF 4 MG/2 ML VIAL. IV ONE (07:30)
[2019-10-21] MEDS ORDERED: PANTOPRAZOLE IV PUSH 40 MG VIAL. IVP ONE (07:45)
[2019-10-21 07:56] LABS: BASO # 0.1 x10^3/uL (0.0-0.2); BASO % 1 % (0-3); EOS # 0.1 x10^3/uL (0.0-0.7); EOS % 1 % (0-3); HEMATOCRIT 45.1 % (36.0-47.0); HEMOGLOBIN 15.5 g/dL (12.0-15.5); LYMPH # 1.9 x10^3/uL (1.0-4.8); LYMPH % 19 % (24-48); MEAN CORPUSCULAR HEMOGLOBIN 34 pg (25-35); MEAN CORPUSCULAR HGB CONC 35 g/dL (31-37); MEAN CORPUSCULAR VOLUME 98 fL (79-100); MONO # 0.6 x10^3/uL (0.0-1.1); MONO % 6 % (0-9); NEUT # 7.7 x10^3/uL (1.8-7.7); NEUT % 74 % (31-73); PLATELET COUNT 233 x10^3/uL (140-400); RED BLOOD COUNT 4.58 x10^6/uL (3.50-5.40); WHITE BLOOD COUNT 10.4 x10^3/uL (4.0-11.0)
[2019-10-21 07:59] LABS: BILIRUBIN,URINE SMALL (NEG); CLARITY,URINE CLEAR; COLOR,URINE AMBER; NITRITE,URINE NEGATIVE (NEG); PROTEIN,URINE 30 mg/dL (NEG-TRACE)
[2019-10-21 08:08] LABS: ALBUMIN 4.4 g/dL (3.4-5.0); ALBUMIN/GLOBULIN RATIO 1.2 (1.0-1.7); CALCIUM 9.3 mg/dL (8.5-10.1); CREATININE 0.9 mg/dL (0.6-1.0); GFR 90.9; TOTAL PROTEIN 8.2 g/dL (6.4-8.2)
[2019-10-21 08:08] LABS: BACTERIA,URINE FEW /HPF (0-FEW); RBC,URINE OCC /HPF (0-2); SQUAMOUS EPITHELIAL CELL,UR FEW /LPF
[2019-10-21 08:09] LABS: PREG TEST PT QUAL NEGATIVE (NEG)
[2019-10-21] MEDS ORDERED: IOHEXOL 300 MG/ML 100ML VIAL. IV ONE (08:15)
[2019-10-21 08:16] LABS: POTASSIUM 2.9 mmol/L (3.5-5.1)
[2019-10-21] MEDS ORDERED: CONTRAST GIVEN. MC PRN (08:30)
[2019-10-21] MEDS ORDERED: POTASSIUM CHLORIDE 20MEQ 100 ML IV ONE (08:30)
--- NOTE | 2019-10-21 08:55 | EKG ---
[facility] [address] [place] [address] Test Date: 2019-10-21 Test Time: 08:41:54 Pat Name: EVI BERTRAND Department: Room: Gender: F Medical Reimbursement Manager: : 1990 Requested By: JOSE KEEN Order Number: [id number] Reading MD: Measurements Intervals [place] Rate: 58 P: 34 IA: 130 QRS: 59 QRSD: 88 T: 49 QT: 406 QTc: 402 Interpretive Statements SINUS RHYTHM OTHERWISE NORMAL ECG RI6.02 No previous ECG available for comparison
--- NOTE | 2019-10-21 09:20 | RAD ---
CT scan of the abdomen and pelvis with contrast 10/21/2019 CLINICAL HISTORY: Abdominal pain and vomiting. TECHNIQUE: After the intravenous administration of 75 cc of Omnipaque 300 only, contiguous, 5 mm axial sections were obtained through the abdomen and pelvis. One or more of the following individualized dose reduction techniques were utilized for this study: 1. Automated exposure control. 2. Adjustment of the mA and/or kV according to patient size. 3. Use of iterative reconstruction technique. FINDINGS: Comparison study is dated 10/22/2018. The absence of oral contrast material limits the study for the detection of bowel pathology. The liver, spleen, pancreas, adrenal glands and kidneys are within normal limits. The abdominal aorta tapers normally. The gallbladder is contracted. No free fluid or free air is seen within the abdomen. There is no evidence of bowel obstruction. The appendix is not visualized. No inflammatory changes are seen surrounding the cecum. No abnormal fluid collection is noted. Images through the pelvis demonstrate the urinary bladder to be contracted. A 2.5 cm rounded low-attenuation lesion is seen in the left adnexa. This likely represents a left ovarian cyst. No free fluid is noted. Very mild S-shaped curvature of the thoracolumbar spine is seen. IMPRESSION: 2.5 cm probable left ovarian cyst. Electronically signed by: Liam Ascencio MD (10/21/2019 9:17 AM) [id number]
[2019-10-21] MEDS ORDERED: ONDA4TAB7 PO (09:36)
[2019-10-21] MEDS ORDERED: POTA20TA4 PO (09:36)
[2019-10-21] MEDS ORDERED: IV NORMAL SALINE 500ML BAG 500 ML IV ONE (10:00)
[2019-10-21 10:57] VITALS: BP 123/73
[2019-10-22] MEDS ORDERED: METO10TA81 PO (05:31)
== END 2019-10-21 10:55 | disposition home or self-care (01) ==
LOC: ER 06:59
DX: R10.13 Epigastric pain (principal); R11.2 Nausea with vomiting, unspecified; K21.9 Gastro-esophageal reflux disease without esophagitis; F17.200 Nicotine dependence, unspecified, uncomplicated; Z98.890 Other specified postprocedural states
CPT/HCPCS: 36415; 74177; 80053; 81001; 81025; 83690; 83735; 84703; 85025; 87086; 93005; 96361; 96365; 96366; 96375; 99285; C9113; J2405; J3480; J7030; J7040; Q9967

== ENCOUNTER 2019-10-22 03:08 | Emergency (ER) | payer MEDICAID ==
[~2019-10-22] VITALS: Ht 167.6 cm; Wt 56.0 kg
[~2019-10-22 03:08] MED LIST changes: +POTA20TA4 PO
[2019-10-22] MEDS ORDERED: METOCLOPRAMIDE 10 MG TABLET. PO ONE (03:30)
[2019-10-22] MEDS ORDERED: IV RINGERS,LACTATED 1000ML 1,000 ML IV ONE ×2 (03:30→04:30)
[2019-10-22] MEDS ORDERED: OLANZapine IM 10 MG VIAL. IM ONE (04:30)
[2019-10-22 04:43] LABS: BASO % 0 % (0-3); BILIRUBIN,URINE SMALL (NEG); CLARITY,URINE CLEAR; COLOR,URINE AMBER; EOS # 0.1 x10^3/uL (0.0-0.7); EOS % 1 % (0-3); HEMATOCRIT 40.3 % (36.0-47.0); HEMOGLOBIN 13.8 g/dL (12.0-15.5); LYMPH # 1.7 x10^3/uL (1.0-4.8); LYMPH % 19 % (24-48); MEAN CORPUSCULAR HEMOGLOBIN 34 pg (25-35); MEAN CORPUSCULAR HGB CONC 34 g/dL (31-37); MEAN CORPUSCULAR VOLUME 98 fL (79-100); MONO # 0.5 x10^3/uL (0.0-1.1); MONO % 6 % (0-9); NEUT # 6.9 x10^3/uL (1.8-7.7); NEUT % 75 % (31-73); NITRITE,URINE NEGATIVE (NEG); PLATELET COUNT 213 x10^3/uL (140-400); PROTEIN,URINE NEGATIVE (NEG-TRACE); RED BLOOD COUNT 4.12 x10^6/uL (3.50-5.40); RED CELL DISTRIBUTION WIDTH 12.8 % (11.5-14.5); WHITE BLOOD COUNT 9.3 x10^3/uL (4.0-11.0)
[2019-10-22 05:03] LABS: CALCIUM 8.7 mg/dL (8.5-10.1); CREATININE 0.9 mg/dL (0.6-1.0); GFR 90.9; POTASSIUM 3.1 mmol/L (3.5-5.1)
[2019-10-22 05:08] LABS: BACTERIA,URINE MODERATE /HPF (0-FEW); HYALINE CASTS, URINE FEW /HPF; SQUAMOUS EPITHELIAL CELL,UR MOD /LPF; WBC,URINE >40 /HPF (0-4)
[2019-10-22 05:09] LABS: ALBUMIN 3.7 g/dL (3.4-5.0); ALBUMIN/GLOBULIN RATIO 1.1 (1.0-1.7); TOTAL BILIRUBIN 0.5 mg/dL (0.2-1.0)
[2019-10-22] MEDS ORDERED: METO10TA81 PO (05:31)
[2019-10-22 05:54] VITALS: BP 125/72
--- NOTE | 2019-11-07 18:13 | PHYS DOC ---
Past Medical History Past Medical History: No Pertinent History Past Surgical History: Smoking Status: Current Every Day Smoker Alcohol Use: None Drug Use: None General Adult EDM: Chief Complaint: ABDOMINAL PAIN HPI: HPI: the history was obtained from the patient. Patient is a 29-year-old female w ith PMH daily marijuana use who presents with a chief complaint of abdominal pain and vomiting. Patient states she has had abdominal pain over the past several days. States it started gradually. States it is diffuse in nature. She states it is nonradiating. States pain is aching. States nothing seems to exacerbate or alleviate the pain. She does note that she works marijuana daily but is never experienced these symptoms before. Denies any urinary symptoms. Denies any vaginal bleeding or discharge. Unsure of last menstrual period. Denies objective fevers. No other complaints. Review of Systems: Review of Systems: Constitutional: Denies fever or chills. [] Eyes: Denies change in visual acuity. [] HENT: Denies nasal congestion or sore throat. [] Respiratory: Denies cough or shortness of breath. [] Cardiovascular: Denies chest pain or edema. [] GI: Positive for abdominal pain and vomiting : Denies dysuria. [] Musculoskeletal: Denies back pain or joint pain. [] Integument: Denies rash. [] Neurologic: Denies headache, focal weakness or sensory changes. [] Endocrine: Denies polyuria or polydipsia. [] Lymphatic: Denies swollen glands. [] Psychiatric: Denies depression or anxiety. [] Heart Score: Risk Factors: Risk Factors: DM, Current or recent (<one month) smoker, HTN, HLP, family history of CAD, obesity. Risk Scores: Score 0 - 3: 2.5% MACE over next 6 weeks - Discharge Home Score 4 - 6: 20.3% MACE over next 6 weeks - Admit for Clinical Observation Score 7 - 10: 72.7% MACE over next 6 weeks - Early Invasive Strategies Current Medications: Current Medications Medications (Trade) Dose Ordered Sig/Katja Start Time Stop Time Status Last Admin Dose Admin Metoclopramide HCl (Reglan) 10 mg 1X ONCE 10/22/19 03:30 10/22/19 03:31 DC 10/22/19 04:51 10 MG Olanzapine (ZyPREXA IM) 10 mg 1X ONCE 10/22/19 04:30 10/22/19 04:31 DC 10/22/19 04:51 10 MG Ringer's Solution 1,000 ml @ 1,000 mls/hr 1X ONCE 10/22/19 04:30 10/22/19 05:29 DC Allergies: Allergies: Allergies Coded Allergies Type Severity Reaction Last Updated Verified No Known Drug Allergies 07/23/15 No Physical Exam: PE: Constitutional: Well developed, well nourished, no acute distress, non-toxic appearance. [] HENT: Normocephalic, atraumatic, bilateral external ears normal, oropharynx moist, no oral exudates, nose normal. [] Eyes: PERRLA, EOMI, conjunctiva normal, no discharge. [] Neck: Normal range of motion, no tenderness, supple, no stridor. [] Cardiovascular:Heart rate regular rhythm, no murmur [] Lungs & Thorax: Bilateral breath sounds clear to auscultation [] Abdomen: Soft, nontender, nonacute abdomen. No involuntary guarding or rigidity noted. No acute peritonitis. Skin: Warm, dry, no erythema, no rash. [] Back: No tenderness, no CVA tenderness. [] Extremities: No tenderness, no cyanosis, no clubbing, ROM intact, no edema. [] Neurologic: Alert and oriented X 3, normal motor function, normal sensory function, no focal deficits noted. [] Psychologic: Affect normal, judgement normal, mood normal. [] Current Patient Data: Labs: Microbiology 10/22/19 Urine Culture - Final, Complete Vital Signs: Vital Signs Date Time Temp Pulse Resp B/P (MAP) Pulse Ox O2 Delivery O2 Flow Rate FiO2 10/22/19 05:54 70 18 125/72 (89) 99 Room Air 10/22/19 03:15 98.4 98.4 EKG: EKG: [] Radiology/Procedures: Radiology/Procedures: [] Course & Med Decision Making: Course & Med Decision Making Pertinent Labs and Imaging studies reviewed. (See chart for details) [] Patient is an overall well-appearing 29-year-old female who presents with a complaint of abdominal pain and vomiting. Initial vital signs unremarkable. Exam overall reassuring with very minimal reproducible tenderness diffusely. Patient does not localize regard. Basic labs were obtained and were unremarkable. No leukocytosis. Urinalysis does show some signs of infection. Urine culture will be sent. On repeat examination her symptoms have been well controlled. She has tolerated p.o. On repeat abdominal exam her abdomen remains benign. I do feel it is appropriate to defer advanced imaging given her normal vital signs and reassuring laboratory analysis. Patient is agreeable to this. Strict 12 to 24-hour return precautions were given. She did express understanding. Stable for discharge home. Dragon Disclaimer: Dragjamie Disclaimer: This electronic medical record was generated, in whole or in part, using a voice recognition dictation system. Departure Departure Impression: Primary Impression: Abdominal pain Qualified Codes: R10.84 - Generalized abdominal pain Disposition: HOME/RESIDENCE PRIOR TO ADM Condition: IMPROVED Referrals: NO PCP (PCP) Justicifation of Admission Dx: Justifications for Admission: Justification of Admission Dx: N/A BRIDGET RAPP DO Nov 07, 2019 18:13
== END 2019-10-22 06:00 | disposition home or self-care (01) ==
LOC: ER 03:08
DX: R10.84 Generalized abdominal pain (principal); R11.2 Nausea with vomiting, unspecified; F17.200 Nicotine dependence, unspecified, uncomplicated; Z98.890 Other specified postprocedural states
CPT/HCPCS: 36415; 80053; 81001; 81025; 83690; 85025; 87086; 96360; 96372; 99285; J3490; J7120

== ENCOUNTER 2019-10-25 04:00 | Observation (INO) | payer MEDICAID ==
[~2019-10-25] VITALS: Ht 167.6 cm; Wt 57.1 kg
[~2019-10-25 04:00] MED LIST changes: +METO10TA81 PO
--- NOTE | 2019-10-25 04:32 | PHYS DOC ---
Past Medical History Past Medical History: No Pertinent History (ARCHANA CIFUENTES DO) Past Surgical History: (ARCHANA CIFUENTES DO) Smoking Status: Current Every Day Smoker Alcohol Use: None Drug Use: None (ARCHAAN CIFUENTES DO) General Adult EDM: Chief Complaint: ABDOMINAL PAIN HPI: HPI: 29-year-old AA female past medical history of GERD or gastroparesis, presents the ED with complaints of epigastric abdominal pain with multiple episodes of nonbloody nonbilious vomiting and nausea since 10 PM last night. Patient states she has been struggling with this for the past month. Her last menstrual period was 1 month ago. States she is been I am unable to smoke marijuana for the past week. No recent alcohol abuse. Has no pcp. Has never followed up with a GI specialist for endoscopy. No h/o transfusions. EMR was reviewed and patient was seen in the ED 3 days ago and had a CT abdomen pelvis with contrast that showed a contracted gallbladder, normal-appearing aorta, no evidence of bowel obstruction, appendix is not visualized, and a probable 2.5 cm left ovarian cyst. Labs showed hypokalemia and was prescribed zofran and potassium tablets, U/A was contaminated. ROS: Denies associated fever, chills, headache, neck stiffness, cough, sore throat, melena, hematochezia, diarrhea, hematemesis, hemoptysis, leg swelling, rash, vaginal bleeding, abnormal vaginal discharge, flank pain, dysuria, hematuria. (ARCHANA CIFUENTES DO) Review of Systems: Review of Systems: Constitutional: Denies fever or chills. [] Eyes: Denies change in visual acuity. [] HENT: Denies nasal congestion or sore throat. [] Respiratory: Denies cough or shortness of breath. [] Cardiovascular: Denies chest pain or edema. [] : Denies dysuria. [] Musculoskeletal: Denies back pain or joint pain. [] Integument: Denies rash. [] Neurologic: Denies headache, focal weakness or sensory changes. [] Psychiatric: Denies depression or anxiety. [] (ARCHANA CIFUENTES DO) Heart Score: Risk Factors: Risk Factors: DM, Current or recent (<one month) smoker, HTN, HLP, family history of CAD, obesity. Risk Scores: Score 0 - 3: 2.5% MACE over next 6 weeks - Discharge Home Score 4 - 6: 20.3% MACE over next 6 weeks - Admit for Clinical Observation Score 7 - 10: 72.7% MACE over next 6 weeks - Early Invasive Strategies (ARCHANA CIFUENTES DO) Allergies: Allergies: Allergies Coded Allergies Type Severity Reaction Last Updated Verified No Known Drug Allergies 07/23/15 No (ARCHANA CIFUENTES DO) Physical Exam: PE: Constitutional: non toxic, active yellow emesis, HENT: Normocephalic, atraumatic, bilateral external ears normal, oropharynx moist, no oral exudates, nose normal. [] Eyes: EOMI, conjunctiva normal, no discharge. [] Neck: Normal range of motion, no tenderness, supple, no stridor. [] Cardiovascular:Heart rate regular rhythm, no murmur [] Lungs & Thorax: Bilateral breath sounds clear to auscultation [] Abdomen: Bowel sounds normal, epigastric ttp, no masses, no pulsatile masses. [] Skin: Warm, dry, no erythema, no rash. [] Back: No tenderness, no CVA tenderness. [] Extremities: No tenderness, no cyanosis, no clubbing, ROM intact, no edema. [] Neurologic: Alert and oriented X 3, normal motor function, normal sensory function, no focal deficits noted. [] Psychologic: Affect normal, judgement normal, mood normal. [] (ARCHANA CIFUENTES DO) Radiology/Procedures: Radiology/Procedures: IMAGING REPORT Signed PATIENT: EVI BERTRAND MACCOUNT: [id number] : 1990 LOCATION: ER AGE: 29 SEX: F EXAM STATUS: REG ER ORD. PHYSICIAN: ARCHANA CIFUENTES DO REASON: epigastric pain PROCEDURE: ACUTE ABDOMEN SERIES INDICATION: Reason: epigastric pain / Spl. Instructions: / History: COMPARISON: CT abdomen from October 21, 2019 IMPRESSION: 3 views of chest and abdomen. Hypoexpanded lungs without definite focal airspace consolidation. Cardiac silhouette is not enlarged. Moderate amount of stool in the right-side of colon. Air-filled dilation of the left side of the colon. Could be from causes such as colonic ileus but a distal obstruction is not excluded given the air-filled dilation of the colon Electronically signed by: Brendon Mccoy MD (10/25/2019 5:33 AM) [id number] DICTATED and SIGNED BY: BRENDON MCCOY MD DATE: 10/25/19 0533 (ARCHANA CIFUENTES DO) Radiology/Procedures: [facility] [address] [place] [address] IMAGING REPORT Signed PATIENT: EVI BERTRAND MACCOUNT: [id number] : 1990 LOCATION: ER AGE: 29 SEX: F EXAM STATUS: REG ER ORD. PHYSICIAN: ARCHANA CIFUENTES DO REASON: dilated bowel loops on xray, OMNI 300, 75 ML IV PROCEDURE: CT ABD PELV W/ IV CONTRST ONLY INDICATION: Reason: dilated bowel loops on xray, OMNI 300, 75 ML IV / Spl. Instructions: / History: COMPARISON: October 21, 2019 TECHNIQUE: Axial CT images obtained through the abdomen and pelvis with contrast. One or more of the following individualized dose reduction techniques were utilized for this examination: 1. Automated exposure control; 2. Adjustment of the mA and/or kV according to patient size; 3. Use of iterative reconstruction technique. FINDINGS: Abdominal aorta is not aneurysmal. Mild periportal edema at liver. Low-density adjacent to the falciform ligament which is commonly from focal fat. Liver is mildly prominent in size. The pancreas enhances. Spleen is unremarkable. No hydronephrosis. Urinary bladder has minimal urine within it at time of exam. Within the left hemipelvis there is a metallic or calcific density structure measuring approximately 8 mm. Difficult to tell the exact location given the numerous loops of bowel in the area. Air-filled dilated colon is identified within the transverse and proximal descending. There is also dilatation of the right-sided colon with a large amount of stool in the area. There is a transition to more normal caliber more distally at the left-sided the abdomen. The appendix is partially visualized with air in the lumen. Cannot assess for adjacent inflammatory changes given numerous unopacified adjacent loops of bowel in the region. Does not appear significantly dilated in visualized portion. Degenerative changes the spine. IMPRESSION: * Dilatation is identified of the large bowel with distal decompression. Would correlate with symptoms given that pathologic causes such as a distal large bowel obstruction could have this appearance in the correct clinical context. * Linear high density structure seen within the left side of the pelvis. Difficult to tell the exact location secondary to numerous loops of unopacified bowel within the area. Could be secondary to intraluminal content but would also correlate with history of surgery to the region since a surgical clip in the area would be an additional consideration. * Mild periportal edema within the liver. Nonspecific in nature and can be related to the patient's hydration status but would correlate with symptoms and lab markers to ensure there is not a pathologic cause such as hepatitis or inflammation of the bile ducts. Electronically signed by: Brendon Mccoy MD (10/25/2019 6:19 AM) [id number] DICTATED and SIGNED BY: BRENDON MCCOY MD DATE: 10/25/19 0619 (RUIZ MUNOZ DO) Course & Med Decision Making: Course & Med Decision Making Pertinent Labs and Imaging studies reviewed. (See chart for details) Concern for epigastric abdominal pain with nonbloody nonbilious vomiting. Dilated bowel loops seen on abdominal series x-ray. Urine drug screen positive for marijuana. Urinalysis contaminated sample, will treat for UTI. Patient with no leukocytosis. Chemistry unremarkable with a negative lipase. CT abd/pelvis pending - concern for obstruction vs cannabinoid hyperemesis vs gastroparesis, etc. Due to shift change patient was signed out to Dr. Munoz for further evaluation and work-up. (ARCHANA GOEL DO) Course & Med Decision Making Patient is a 29-year-old female who presented to ER with abdominal pain associate with nausea vomiting. CT scan consistent with obstruction. Patient be admitted to hospital for further evaluation treatment. Discussed with Dr. Zhu who agreed to admit the patient. (RUIZ MUNOZ DO) Dragon Disclaimer: Dragon Disclaimer: This electronic medical record was generated, in whole or in part, using a voice recognition dictation system. (ARCHANA CIFUENTES DO) Departure Departure Impression: Primary Impression: Abdominal pain Additional Impressions: Marijuana abuse Nausea & vomiting Bowel obstruction Disposition: ADMITTED INPATIENT Admitting Physician: [facility] (DR. ZHU) (RUIZ MUNOZ DO) Condition: IMPROVED Referrals: NO PCP (PCP) Justicifation of Admission Dx: Justifications for Admission: Justification of Admission Dx: N/A (ARCHANA CIFUENTES DO) ARCHANA CIFUENTES DO Oct 25, 2019 04:32 RUIZ MUNOZ DO Oct 25, 2019 08:06
[2019-10-25 04:43] LABS: BASO # 0.1 x10^3/uL (0.0-0.2); BASO % 1 % (0-3); EOS # 0.1 x10^3/uL (0.0-0.7); EOS % 1 % (0-3); HEMATOCRIT 38.2 % (36.0-47.0); HEMOGLOBIN 12.9 g/dL (12.0-15.5); LYMPH # 1.5 x10^3/uL (1.0-4.8); LYMPH % 18 % (24-48); MEAN CORPUSCULAR HEMOGLOBIN 34 pg (25-35); MEAN CORPUSCULAR HGB CONC 34 g/dL (31-37); MEAN CORPUSCULAR VOLUME 99 fL (79-100); MONO # 0.5 x10^3/uL (0.0-1.1); MONO % 6 % (0-9); NEUT # 6.2 x10^3/uL (1.8-7.7); NEUT % 75 % (31-73); PLATELET COUNT 198 x10^3/uL (140-400); RED BLOOD COUNT 3.85 x10^6/uL (3.50-5.40); RED CELL DISTRIBUTION WIDTH 13.3 % (11.5-14.5); WHITE BLOOD COUNT 8.3 x10^3/uL (4.0-11.0)
[2019-10-25 04:50] LABS: BILIRUBIN,URINE NEGATIVE (NEG); CLARITY,URINE TURBID; COLOR,URINE YELLOW; NITRITE,URINE NEGATIVE (NEG); PH,URINE 8.5 (<5.0-8.0); PROTEIN,URINE NEGATIVE (NEG-TRACE)
[2019-10-25] MEDS ORDERED: diphenhydrAMINE 50 MG/ML VIAL ONE (04:50)
[2019-10-25 04:55] LABS: AMORPHOUS SEDIMENT,UR PRESENT /HPF; BACTERIA,URINE FEW /HPF (0-FEW); RBC,URINE 0 /HPF (0-2); SQUAMOUS EPITHELIAL CELL,UR FEW /LPF
[2019-10-25 04:56] LABS: ALBUMIN 3.6 g/dL (3.4-5.0); DIRECT BILIRUBIN 0.1 mg/dL (0.0-0.2); TOTAL BILIRUBIN 0.4 mg/dL (0.2-1.0); TOTAL PROTEIN 6.2 g/dL (6.4-8.2)
[2019-10-25 04:57] LABS: BARBITURATES NEG (NEG); BENZODIAZEPINES NEG (NEG); CANNABINOIDS POS (NEG); COCAINE NEG (NEG); METHADONE NEG (NEG); OPIATES NEG (NEG); PHENCYCLIDINE NEG (NEG)
[2019-10-25 04:59] LABS: AMPHETAMINE/METHAMPHETAMINE NEG (NEG)
[2019-10-25] MEDS ORDERED: HALOPERIDOL LACTATE 5 MG/ML VIAL. IVP ONE (05:00)
[2019-10-25] MEDS ORDERED: IV NORMAL SALINE 1000ML BAG 1,000 ML IV SCH (05:00)
[2019-10-25 05:07] LABS: CALCIUM 8.3 mg/dL (8.5-10.1); CREATININE 0.8 mg/dL (0.6-1.0); GFR 104.1; POTASSIUM 3.5 mmol/L (3.5-5.1)
[2019-10-25 05:10] LABS: U PREG PATIENT NEGATIVE (NEG)
[2019-10-25] MEDS ORDERED: CONTRAST GIVEN. MC PRN (05:30)
[2019-10-25] MEDS ORDERED: FAMOTIDINE 20 MG/2 ML VIAL IVP ONE (05:30)
[2019-10-25] MEDS ORDERED: ONDANSETRON PF 4 MG/2 ML VIAL. IVP ONE (05:30)
[2019-10-25] MEDS ORDERED: diphenhydrAMINE 50 MG/ML VIAL IVP ONE (05:30)
[2019-10-25] MEDS ORDERED: cefTRIAXone IV Push 1 GM VIAL. IVP ONE (05:30)
--- NOTE | 2019-10-25 05:36 | RAD ---
INDICATION: Reason: epigastric pain / Spl. Instructions: / History: COMPARISON: CT abdomen from October 21, 2019 IMPRESSION: 3 views of chest and abdomen. Hypoexpanded lungs without definite focal airspace consolidation. Cardiac silhouette is not enlarged. Moderate amount of stool in the right-side of colon. Air-filled dilation of the left side of the colon. Could be from causes such as colonic ileus but a distal obstruction is not excluded given the air-filled dilation of the colon Electronically signed by: Alejo Dill MD (10/25/2019 5:33 AM) [id number]
[2019-10-25] MEDS ORDERED: IOHEXOL 300 MG/ML 100ML VIAL. IV ONE (06:00)
--- NOTE | 2019-10-25 06:22 | RAD ---
INDICATION: Reason: dilated bowel loops on xray, OMNI 300, 75 ML IV / Spl. Instructions: / History: COMPARISON: October 21, 2019 TECHNIQUE: Axial CT images obtained through the abdomen and pelvis with contrast. One or more of the following individualized dose reduction techniques were utilized for this examination: 1. Automated exposure control; 2. Adjustment of the mA and/or kV according to patient size; 3. Use of iterative reconstruction technique. FINDINGS: Abdominal aorta is not aneurysmal. Mild periportal edema at liver. Low-density adjacent to the falciform ligament which is commonly from focal fat. Liver is mildly prominent in size. The pancreas enhances. Spleen is unremarkable. No hydronephrosis. Urinary bladder has minimal urine within it at time of exam. Within the left hemipelvis there is a metallic or calcific density structure measuring approximately 8 mm. Difficult to tell the exact location given the numerous loops of bowel in the area. Air-filled dilated colon is identified within the transverse and proximal descending. There is also dilatation of the right-sided colon with a large amount of stool in the area. There is a transition to more normal caliber more distally at the left-sided the abdomen. The appendix is partially visualized with air in the lumen. Cannot assess for adjacent inflammatory changes given numerous unopacified adjacent loops of bowel in the region. Does not appear significantly dilated in visualized portion. Degenerative changes the spine. IMPRESSION: * Dilatation is identified of the large bowel with distal decompression. Would correlate with symptoms given that pathologic causes such as a distal large bowel obstruction could have this appearance in the correct clinical context. * Linear high density structure seen within the left side of the pelvis. Difficult to tell the exact location secondary to numerous loops of unopacified bowel within the area. Could be secondary to intraluminal content but would also correlate with history of surgery to the region since a surgical clip in the area would be an additional consideration. * Mild periportal edema within the liver. Nonspecific in nature and can be related to the patient's hydration status but would correlate with symptoms and lab markers to ensure there is not a pathologic cause such as hepatitis or inflammation of the bile ducts. Electronically signed by: Alejo Dill MD (10/25/2019 6:19 AM) [id number]
[2019-10-25] MEDS ORDERED: ONDANSETRON PF 4 MG/2 ML VIAL. IV PRN (08:15)
[2019-10-25] MEDS ORDERED: MORPHINE SULFATE 2 MG/ML VIAL. IV PRN (08:15)
[2019-10-25 09:12] VITALS: BP 110/56
[2019-10-25] MEDS: IV NORMAL SALINE 1000ML BAG 1,000 ML IV SCH ×2 (10:18→20:05)
--- NOTE | 2019-10-25 10:47 | HP ---
ADMIT DATE: 10/25/2019 CHIEF COMPLAINT: Abdominal pain. HISTORY OF PRESENT ILLNESS: The patient is a pleasant, relatively healthy lady, but she does have gastroparesis and GERD. She presented to the ER with abdominal pain, rates it a 7/10. She also has some associated vomiting since 10:00 p.m. last night. She was seen in the ER 3 days ago as well for similar symptoms. Her potassium at that time was a little low. She was given some potassium and discharged. Today, we did some imaging, showing a possible small-bowel obstruction. I discussed the case with the ER physician. We are going to admit the patient and consult GI. PAST MEDICAL HISTORY: , gastroparesis, GERD, tobacco abuse. ALLERGIES: None. FAMILY HISTORY: Diabetes. SOCIAL HISTORY: She does not take drugs or drink. She does smoke. MEDICATIONS: Reviewed, please refer to the MRAD. REVIEW OF SYSTEMS: GENERAL: No history of weight change, weakness or fevers. SKIN: No bruising, hair changes or rashes. EYES: No blurred, double or loss of vision. NOSE AND THROAT: No history of nosebleeds, hoarseness or sore throat. HEART: No history of palpitations, chest pain or shortness of breath on exertion. LUNGS: Denies cough, hemoptysis, wheezing or shortness of breath. GASTROINTESTINAL: She complains of abdominal pain, nausea and vomiting. GENITOURINARY: No history of frequency, urgency, hesitancy or nocturia. NEUROLOGIC: Denies history of numbness, tingling, tremor or weakness. PSYCHIATRIC: No history of panic, anxiety or depression. ENDOCRINE: No history of heat or cold intolerance, polyuria or polydipsia. EXTREMITIES: Denies muscle weakness, joint pain, pain on walking or stiffness. PHYSICAL EXAMINATION: VITALS: Within normal limits and are stable. GENERAL: No apparent distress. Alert and oriented. HEENT: Normal cephalic atraumatic, external auditory canals are patent EYES: Extraocular muscles are intact, pupils are equally round and reactive to light and accommodation MUSCULOSKELETAL: Well developed, well nourished, good range of motion ENDOCRINE: No thyromegaly was palpated LYMPHATICS: No cervical chain or axillary nodes were noted HEMATOPOIETIC: No bruising NECK: Supple, no JVD, no thyromegaly was noted. LUNGS: Clear to auscultation in all lung infante without rhonchi or wheezing. HEART: RRR, S1, S2 present. Peripheral pulses intact, no obvious murmurs were noted. ABDOMEN: Her abdomen is tender with decreased bowel sounds. EXTREMITIES: Without any cyanosis, clubbing, or edema. Pedal pulses intact, Homans sign is negative. NEUROLOGIC: Normal speech, normal tone. A & O x3, moves all extremities, no obvious focal deficits. PSYCHIATRIC: Normal affect, normal mood. Stable. SKIN: No ulcerations or rashes, good skin turgor, no jaundice. VASCULAR: Good capillary refill, neurovascular bundle appears to be intact. LABORATORY DATA: Hematology is normal. Electrolytes normal other than a slightly low anion gap of 3. Drug screen positive for cannabinoids. Urinalysis 5-10 white cells, positive for leukocyte esterase. IMAGING: CT of the abdomen shows dilatation of the large bowel with possible obstruction. ASSESSMENT AND PLAN: Possible small-bowel obstruction with incidental finding of urinary tract infection. The patient will be admitted. We will consult GI. IV fluids, IV antibiotics, home meds, DVT prophylaxis. Full code. Sukhdev Figueroa. ISAIAS CHANDLER DO DR: THALIA/antonio JOB#: [id number] / [id number]
[2019-10-25 11:00] VITALS: BP 114/70
--- NOTE | 2019-10-25 11:04 | PDOC2 ---
GI CONSULT Date of Service: DATE: 10/25/19 TIME: 11:03 Reason For Consult: SBO HPI: HPI: 29 y/o female admitted through ER. Ill w/ epigastric pain and vomiting x 3 da ys. Denies precipitating events. Epigastric pain is stabbing, probably worse after eating, and does not radiate. Usually no issues with constipation but hasn't stooled in 2-3 days and isn't passing much gas. Labs unrevealing except for possible UTI and tox screen +cannabinoids. CT A/P: dilatation of large bowel with distal decompression, linear high density structure in pelvis, and mild periportal edema within liver. Reviewed chart - has been seen several times in ER for epigastric pain - GI cocktail helped once, recommendation for further evaluation w/ molder setter, and prescriptions given for acid-reducers. She says this time is different because she usually doesn't have associated n/v. Has reflux - seems has taken acid-reducers in the past but nothing on a regular basis and is not currently taking anything. No dysphagia, hematemesis, bloating, early satiety, diarrhea, hematochezia, melena, or weight loss. No previous EGD or colonoscopy. No GB, liver, pancreas, or PUD history. Took an Aleve recently for epigastric pain. She has 6 children, ages 2 to 10 - the oldest four live with her and are starting school (online) next week. PMH: PMH: left adnexal cyst FH: Family History: No pertinent hx (denies GI cancers) Social History: Smoke: Quit (1 week ago) ALCOHOL: none Drugs: Marijuana (quit 1 week ago) ROS: GEN: Denies fevers, chills, sweats HEENT: Denies blurred vision, sore throat CV: Denies chest pain RESP: Denies shortness of air, cough GI: Per HPI : Denies hematuria, dysuria ENDO: Denies weight changes NEURO: Denies confusion, dizziness MSK: Denies weakness, joint pain/swelling SKIN: Denies jaundice, pruritus Vitals: Vitals: Vital Signs Date Time Temp Pulse Resp B/P (MAP) Pulse Ox O2 Delivery O2 Flow Rate FiO2 10/25/19 09:12 98.5 73 20 110/56 (74) 97 Room Air 98.5 Labs: Labs: Laboratory Tests Test 10/25/19 04:33 10/25/19 04:40 White Blood Count 8.3 x10^3/uL (4.0-11.0) Red Blood Count 3.85 x10^6/uL (3.50-5.40) Hemoglobin 12.9 g/dL (12.0-15.5) Hematocrit 38.2 % (36.0-47.0) Mean Corpuscular Volume 99 fL (79-100) Mean Corpuscular Hemoglobin 34 pg (25-35) Mean Corpuscular Hemoglobin Concent 34 g/dL (31-37) Red Cell Distribution Width 13.3 % (11.5-14.5) Platelet Count 198 x10^3/uL (140-400) Neutrophils (%) (Auto) 75 % (31-73) Lymphocytes (%) (Auto) 18 % (24-48) Monocytes (%) (Auto) 6 % (0-9) Eosinophils (%) (Auto) 1 % (0-3) Basophils (%) (Auto) 1 % (0-3) Neutrophils # (Auto) 6.2 x10^3/uL (1.8-7.7) Lymphocytes # (Auto) 1.5 x10^3/uL (1.0-4.8) Monocytes # (Auto) 0.5 x10^3/uL (0.0-1.1) Eosinophils # (Auto) 0.1 x10^3/uL (0.0-0.7) Basophils # (Auto) 0.1 x10^3/uL (0.0-0.2) Sodium Level 139 mmol/L (136-145) Potassium Level 3.5 mmol/L (3.5-5.1) Chloride Level 105 mmol/L (98-107) Carbon Dioxide Level 31 mmol/L (21-32) Anion Gap 3 (6-14) Blood Urea Nitrogen 6 mg/dL (7-20) Creatinine 0.8 mg/dL (0.6-1.0) Estimated GFR (Cockcroft-Gault) 104.1 Glucose Level 97 mg/dL (70-99) Calcium Level 8.3 mg/dL (8.5-10.1) Total Bilirubin 0.4 mg/dL (0.2-1.0) Direct Bilirubin 0.1 mg/dL (0.0-0.2) Aspartate Amino Transf (AST/SGOT) 11 U/L (15-37) Alanine Aminotransferase (ALT/SGPT) 15 U/L (14-59) Alkaline Phosphatase 62 U/L (46-116) Creatine Kinase 130 U/L (26-192) Total Protein 6.2 g/dL (6.4-8.2) Albumin 3.6 g/dL (3.4-5.0) Lipase 85 U/L (73-393) Urine Collection Type Unknown Urine Color Yellow Urine Clarity Turbid Urine pH 8.5 (<5.0-8.0) Urine Specific [place] 1.015 (1.000-1.030) Urine Protein Negative mg/dL (NEG-TRACE) Urine Glucose (UA) Negative mg/dL (NEG) Urine Ketones (Stick) Negative mg/dL (NEG) Urine Blood Negative (NEG) Urine Nitrite Negative (NEG) Urine Bilirubin Negative (NEG) Urine Urobilinogen Dipstick 1.0 mg/dL (0.2 mg/dL) Urine Leukocyte Esterase Moderate (NEG) Urine RBC 0 /HPF (0-2) Urine WBC 5-10 /HPF (0-4) Urine Squamous Epithelial Cells Few /LPF Urine Amorphous Sediment Present /HPF Urine Bacteria Few /HPF (0-FEW) Urine Mucus Slight /LPF Urine Test Negative (NEG) Urine Opiates Screen Neg (NEG) Urine Methadone Screen Neg (NEG) Urine Barbiturates Neg (NEG) Urine Phencyclidine Screen Neg (NEG) Urine Amphetamine/Methamphetamine Neg (NEG) Urine Benzodiazepines Screen Neg (NEG) Urine Cocaine Screen Neg (NEG) Urine Cannabinoids Screen Pos (NEG) Urine Ethyl Alcohol Neg (NEG) Allergies: Coded Allergies: No Known Drug Allergies (Unverified , 07/23/15) Medications: Current Medications Medications (Trade) Dose Ordered Sig/Katja Route PRN Reason Start Time Stop Time Status Last Admin Dose Admin Sodium Chloride 1,000 ml @ 100 mls/hr Q10H IV 10/25/19 05:00 10/25/19 14:59 10/25/19 04:41 Haloperidol Lactate (Haldol Inj) 5 mg 1X ONCE IVP 10/25/19 05:00 10/25/19 05:01 DC 10/25/19 04:40 Diphenhydramine HCl (Benadryl) 50 mg 1X ONCE IVP 10/25/19 05:30 10/25/19 05:31 DC 10/25/19 05:00 Ondansetron HCl (Zofran) 8 mg 1X ONCE IVP 10/25/19 05:30 10/25/19 05:31 DC 10/25/19 05:47 Famotidine (Pepcid Vial) 20 mg 1X ONCE IVP 10/25/19 05:30 10/25/19 05:31 DC 10/25/19 05:47 Ceftriaxone Sodium (Rocephin) 1 gm 1X ONCE IVP 10/25/19 05:30 10/25/19 05:31 DC 10/25/19 05:47 Iohexol (Omnipaque 300 Mg/ml) 75 ml 1X ONCE IV 10/25/19 06:00 10/25/19 06:01 DC 10/25/19 05:48 Sodium Chloride 1,000 ml @ 100 mls/hr Q10H IV 10/25/19 08:07 10/26/19 08:06 10/25/19 10:18 Imaging: Imaging: AAS 10/25/19 IMPRESSION: Hypoexpanded lungs without definite focal airspace consolidation. Cardiac silhouette is not enlarged. Moderate amount of stool in the right-side of colon. Air-filled dilation of the left side of the colon. Could be from causes such as colonic ileus but a distal obstruction is not excluded given the air-filled dilation of the colon. CT A/P 10/25/19 IMPRESSION: * Dilatation is identified of the large bowel with distal decompression. Would correlate with symptoms given that pathologic causes such as a distal large bowel obstruction could have this appearance in the correct clinical context. * Linear high density structure seen within the left side of the pelvis. Difficult to tell the exact location secondary to numerous loops of unopacified bowel within the area. Could be secondary to intraluminal content but would also correlate with history of surgery to the region since a surgical clip in the area would be an additional consideration. * Mild periportal edema within the liver. Nonspecific in nature and can be related to the patient's hydration status but would correlate with symptoms and lab markers to ensure there is not a pathologic cause such as hepatitis or inflammation of the bile ducts. CT A/P 10/21/19 IMPRESSION: 2.5 cm probable left ovarian cyst. CT A/P 09/2018 IMPRESSION: Large amount of intestinal air but especially in the colon but no abnormal d ilatation or evidence of obstruction. 3 cm cystic-appearing lesion in the left adnexa which may represent an ovarian cyst. Appendix is not identified due to lack of intra-abdominal fat and crowding of the abdominal structures. RUQ US 08/2018 FINDINGS: Visualized pancreas within normal limits. IVC is patent. Liver is top normal in size measuring 17 cm with normal echogenicity. No gallstones, pericholecystic fluid or gallbladder wall thickening. Main portal vein is patent with hepatopedal flow. CBD measures 2 mm in diameterand is within normal limits. Right kidney measures 10.3 cm in length without hydronephrosis. IMPRESSION: No cholelithiasis. CT A/P 01/2018 IMPRESSION: No acute abnormality is seen. PE: GEN: NAD HEENT: Atraumatic, PERRL LUNGS: CTAB HEART: RRR ABD: BS quiet but present, S/ND, pain over xiphoid EXTREMITY: No edema SKIN: No rashes, no jaundice NEURO/PSYCH: A & O 3 - a bit drowsy from meds given in ER but able to participate in interview A/P: A/P: Chronic/recurrent epigastric pain, n/v, constipation ?UTI Abnormal CT - dilatation of large bowel with distal decompression, linear high density structure in pelvis, mild periportal edema GERD - untreated, no previous EGD CRC screen - average risk +cannabinoids -- Will review CT w/ Dr. Cerrato. Jun for NPO for now, add IV acid-production grader. CROW CALLE Oct 25, 2019 11:04
[2019-10-25] MEDS ORDERED: POLYETHYLENE GLYCOL 3350 17 GM PACKET. PO PRN (14:15)
[2019-10-25] MEDS ORDERED: BISACODYL 5 MG TABLET.DR. PO PRN (14:15)
[2019-10-25 15:00] VITALS: BP 112/69
[2019-10-25] MEDS: PANTOPRAZOLE IV PUSH 40 MG VIAL. IVP SCH (15:37)
[2019-10-25 19:00] VITALS: BP 113/71
[2019-10-25 23:13] VITALS: BP 150/85
[2019-10-26 03:00] VITALS: BP 123/59
[2019-10-26] MEDS: IV NORMAL SALINE 1000ML BAG 1,000 ML IV SCH (06:26)
[2019-10-26 07:00] VITALS: BP 118/78
[2019-10-26] MEDS: PANTOPRAZOLE IV PUSH 40 MG VIAL. IVP SCH (07:43)
[2019-10-26] MEDS ORDERED: cefTRIAXone IV Push 1 GM VIAL. IVP SCH (09:00)
--- NOTE | 2019-10-26 09:13 | NUR ---
Pt wanting to sign out AMA due to two children being at home without supervision. This RN called Dr. Zhu and notified him of the situation. Katy, nursing cutting supervisor also notified. Pt seen and examined by Cristina Foss APRN, script for Protonix given to pt. IV removed without complications. Pt informed by this RN of potential risks. Pt verbalizes understanding. Security called to walk pt out. Upon pt leaving AMA, Dr. Zhu saw and spoke with pt. Pt left unit at approx 0915 by ambulation, accompanied by significant other.
--- NOTE | 2019-10-26 09:48 | PDOC ---
Date of Service: DATE: 10/26/19 TIME: 09:46 Subjective: Subjective: Pt seen per nurse request prior to DC - feeling better and wanting to get home to her children - might leave AMA. Tolerating regular diet, abd pain resolved, stooled. Objective: Vital Signs: Vital Signs Date Time Temp Pulse Resp B/P (MAP) Pulse Ox O2 Delivery O2 Flow Rate FiO2 10/26/19 07:46 Room Air 10/26/19 07:00 98.1 62 20 118/78 (91) 100 98.1 PE: GEN: NAD - looks much better - walking around, getting ready to leave LUNGS: CTAB HEART: RRR ABD: NABS, S/ND/NT NEURO/PSYCH: A & O 3 A/P: Chronic/recurrent epigastric pain, n/v, constipation - resolved ?UTI GERD +cannabinoids -- DC per primary on PPI - Rx provided. Follow-up w/ GI PRN - consider HIDA if symptoms recur. Justicifation of Admission Dx: Justifications for Admission: Justification of Admission Dx: N/A CROW CALLE Oct 26, 2019 09:48
== END 2019-10-26 09:20 | disposition left against medical advice (07) ==
LOC: ER 04:00 → 2 SOUTH 08:00 → INTOOBSV 08:00
PROVIDERS: ADMIT Internal Medicine; ATTEND Internal Medicine
DX: R10.13 Epigastric pain (principal); R11.2 Nausea with vomiting, unspecified; F12.10 Cannabis abuse, uncomplicated; K56.609 Unspecified intestinal obstruction, unspecified as to partial versus complete obstruction; K21.9 Gastro-esophageal reflux disease without esophagitis; K31.84 Gastroparesis; F17.200 Nicotine dependence, unspecified, uncomplicated; E87.6 Hypokalemia; Z98.891 History of uterine scar from previous surgery
CPT/HCPCS: 36415; 74022; 74177; 80048; 80076; 80307; 81001; 81025; 82550; 83690; 85025; 87086; 96361; 96374; 96375; 96376; 99285; C9113; G0378; J0696; J1200; J1630; J2405; J3490; J7030; Q9967; G0379